=== PATIENT | female | born 1945 | race Caucasian/White ===

== ENCOUNTER 2016-05-10 05:39 | Emergency (ER) | payer OTHER ==
[~2016-05-10] VITALS: Ht 165.1 cm; Wt 71.8 kg
[~2016-05-10 05:39] MED LIST: ASPEC81 PO; LEVO75TA36 PO; LISI-461 PO; LPR25 PO; SIMV10TA2 PO; SNG10 PO
[2016-05-10 05:50] VITALS: BP 157/73; PULSE 69; TEMP 36.7; O2SAT 98; Ht 165.1 cm; Wt 71.8 kg
--- NOTE | 2016-05-10 05:59 | EMERGENCY ROOM VISIT NOTE ---
ED Visit Note First contact with patient: 05:52 CHIEF COMPLAINT: Tick bite HISTORY OF PRESENT ILLNESS: This 71 yo patient presents to the emergency department after they noticed a tick embedded neck. The patient did not try to remove it. It had been on for less than a day. The patient's tetanus shot is up-to-date. The patient denies any rashes, fevers, chills, or lightheadedness. The patient denies joint tenderness. REVIEW OF SYSTEMS: A 6 system review of systems was completed with positives and pertinent negatives listed in the HPI. ALLERGIES: Reviewed MEDICATIONS: Reviewed PMH: Hypertension, hyperlipidemia SOCIAL HISTORY: No drug use PHYSICAL EXAM: Vital Signs: Reviewed Nurse's notes, vital signs stable. GENERAL : Pleasant female, in no acute distress, well-developed, well-nourished. SKIN: There is small brown-black tick embedded in the patient's left-sided neck. There is a small zone of inflammation and eccymosis around the spot where the tick is. The skin is otherwise clear. NEUROLOGICAL: Alert and oriented to person place and time, cooperative. Sensory and motor functions grossly intact. ED COURSE: I examined the patient. A tick twister was used to remove the tick. The whole head was removed. There was no bleeding. The patient tolerated the procedure well. The area was dressed with bacitracin and a bandage. Patient was counseled on Lyme's disease and tick borne illnesses and all questions are answered. The patient was discharged home in good condition. DIAGNOSIS: Tick bite and removal DISCHARGE INSTRUCTIONS & TREATMENT: Watch the area for signs of infection. Keep bacitracin on it for 2 days. Follow up with family doctor if he develops symptoms of a target rash, fever, chills, lightheadedness, or joint pain. Problem List Medical Problems: (1) Anemia Status: Chronic Current/Historical Medications Scheduled Aspirin Enteric Coated (Ecotrin Or Generic *), 81 MG PO [id number] Levothyroxine (Levothroid), 0.075 MG PO DAILYBB Lisinopril (Zestril), 10 MG PO QAM Metoprolol Tartrate (Lopressor), 12.5 MG PO PM Montelukast Sod (Montelukast Sodium), 10 MG PO DAILY Simvastatin (Zocor), 10 MG PO QPM Allergies Coded Allergies: Itraconazole (Verified Allergy, Unknown, heart races, 05/10/16) Metoclopramide (Verified Allergy, Unknown, 04/25/09) TONGUE FEELS FULL Vital Signs Date Time Temp Pulse Resp B/P Pulse Ox O2 Delivery O2 Flow Rate FiO2 05/10/16 05:50 36.7 69 18 157/73 98 Room Air Departure Information Referrals Adrienne Loyd D.O. (PCP) Patient Instructions [facility]
[2016-05-10] MEDS ORDERED: LSN5 PO (06:12)
[2016-05-10] MEDS ORDERED: LEVO75TA5 PO (06:13)
[2016-05-10] MEDS ORDERED: TPRSR/25 PO (06:13)
[2016-05-10] MEDS ORDERED: ASPI81TA28 PO (06:14)
[2016-05-10] MEDS ORDERED: CALC-20 PO (06:15)
[2016-05-10] MEDS ORDERED: MULT-897 PO (06:15)
[2016-05-10] MEDS ORDERED: MONT1TAB3 PO (06:15)
== END 2016-05-10 06:11 | disposition home or self-care (01) ==
LOC: C.EDB 05:41
DX: S10.96XA Insect bite of unspecified part of neck, initial encounter (principal); W57.XXXA Bitten or stung by nonvenomous insect and other nonvenomous arthropods, initial encounter; I10 Essential (primary) hypertension; E78.5 Hyperlipidemia, unspecified; Z79.82 Long term (current) use of aspirin; Z79.899 Other long term (current) drug therapy

== ENCOUNTER 2017-02-09 18:41 | Emergency (ER) | payer OTHER ==
[~2017-02-09] VITALS: Ht 165.1 cm; Wt 70.8 kg
[~2017-02-09 18:41] MED LIST changes: -ASPEC81 PO; +ASPI81TA28 PO; +CALC-20 PO; -LEVO75TA36 PO; +LEVO75TA5 PO; -LISI-461 PO; -LPR25 PO; +LSN5 PO; +MONT1TAB3 PO; +MULT-897 PO; +TPRSR/25 PO
[2017-02-09 18:43] VITALS: TEMP 36.7; Ht 165.1 cm; Wt 70.8 kg
[2017-02-09] MEDS ORDERED: ALUMINUM/MAGNESIUM SUSP 30 ML UDC PO STA (19:01)
[2017-02-09] MEDS ORDERED: LIDOCAINE HCL 2% VISC SOLN 20 ML UDC PO STA (19:01)
[2017-02-09 19:30] LABS: BASO % 0.5 %; BASO ABS # 0.04 K/uL (0-0.2); COMPLETE YES; EOS % 1.3 %; HEMATOCRIT 35.5 % (37-47); IG% 0.2 %; LYMPH % 20.5 %; LYMPH ABS # 1.73 K/uL (1.2-3.4); MEAN CELL VOLUME 87.9 fL (80-100); MEAN CORPUSCULAR HEMOGLOBIN 29.5 pg (25-34); MEAN CORPUSCULAR HGB CONC 33.5 g/dl (32-36); MEAN PLATELET VOLUME 9.9 fL (7.4-10.4); MONO % 9.7 %; NEUT % 67.8 %; PLATELET COUNT 231 K/uL (130-400); RED BLOOD COUNT 4.04 M/uL (4.2-5.4); WHITE BLOOD COUNT 8.44 K/uL (4.8-10.8)
--- NOTE | 2017-02-09 19:33 | DIAGNOSTIC IMAGING REPORT ---
SINGLE VIEW CHEST CLINICAL HISTORY: Fever. Sepsis. FINDINGS: An AP, portable, upright chest radiograph is compared to study dated 07/21/2011 and correlated with chest CT dated 07/22/2011. The examination is degraded by portable technique and apical lordotic positioning. The cardiomediastinal silhouette is unremarkable. The lungs and pleural spaces are clear. No pneumothorax is seen. The skeletal structures are osteopenic. The bony thorax is grossly intact. IMPRESSION: No active disease in the chest. Electronically signed by: Rodrigo Garcia M.D. 02/09/2017 7:32 PM Dictated Date/Time: 02/09/2017 7:31 PM
[2017-02-09 19:50] LABS: ALT/SGPT 27 U/L (12-78); BLOOD UREA NITROGEN 20 mg/dl (7-18); BUN/CREATININE RATIO 18.7 (10-20); CALCIUM 9.4 mg/dl (8.5-10.1); CARBON DIOXIDE 26 mmol/L (21-32); CHLORIDE 103 mmol/L (98-107); CREATININE 1.05 mg/dl (0.60-1.20); GLUCOSE 109 mg/dl (70-99); POTASSIUM 3.6 mmol/L (3.5-5.1); SODIUM 138 mmol/L (136-145)
[2017-02-09 19:55] LABS: ALKALINE PHOSPHATASE 67 U/L (45-117); AST/SGOT 20 U/L (15-37); CKMB/CK RATIO 1.5 (0-3.0)
[2017-02-09] MEDS ORDERED: COEN1CAP7 PO (19:59)
[2017-02-09] MEDS ORDERED: PRVC/20 PO (19:59)
--- NOTE | 2017-02-09 20:03 | EMERGENCY ROOM VISIT NOTE ---
History Report prepared by Moncho: Sean Freitas Under the Supervision of: Dr. Atul Ferris D.O. First contact with patient: 18:53 Chief Complaint: CHEST PAIN Stated Complaint: CHEST PAIN, BURNING/STINGY, BURPING- REFERRED History of Present Illness The patient is a 72 year old female who presents to the Emergency Room with complaints of intermittent left chest pain starting yesterday morning around 0300. She currently rates her discomfort as a 3/10 in severity. The patient additionally states that she has been burping a lot, having more bowel movements than usual, and she has a little bit of shortness of breath. She states that she had a stress test done five years ago as well as a catheterization, though she did not have any blockages. The patient states that she went to urgent care this morning, and they told her to come to the ED for further evaluation to rule out a heart attack. She denies any leg pain or swelling. Source of History: patient Onset: yesterday morning at 0300 Position: chest (left) Symptom Intensity: 3/10 Timing: intermittent Associated Symptoms: + SOB Note: Associated symptoms: Burping and a lot of bowel movements. Review of Systems See HPI for pertinent positives & negatives. A total of 10 systems reviewed and were otherwise negative. Past Medical & Surgical Medical Problems: (1) Anemia Social History Smoking Status: Never Smoker Marital Status: Occupation Status: retired Current/Historical Medications Scheduled Aspirin (Aspirin Ec), 81 MG PO 3XWK Coenzyme Q10 (Ubidecarenone) (Coq10), 200 MG PO QPM Levothyroxine Sodium (Levothyroxine Sodium), 75 MCG PO DAILY Lisinopril (Lisinopril), 5 MG PO DAILY Metoprolol Succinate (Metoprolol Succinate ER), 12.5 MG PO QPM Montelukast Sod (Montelukast Sodium), 10 MG PO DAILY Pravastatin Sod (Pravastatin Sodium), 20 MG PO HS Allergies Coded Allergies: Itraconazole (Verified Allergy, Unknown, heart races, 02/09/17) Metoclopramide (Verified Allergy, Unknown, 02/09/17) TONGUE FEELS FULL Physical Exam Vital Signs Date Time Temp Pulse Resp B/P (MAP) Pulse Ox O2 Delivery O2 Flow Rate FiO2 02/09/17 20:09 72 18 161/73 97 02/09/17 19:14 95 Room Air 11/22/17 19:14 Room Air 02/09/17 19:13 82 02/09/17 18:43 36.7 72 18 145/76 96 Room Air Physical Exam CONSTITUTIONAL/VITAL SIGNS: Reviewed / noted above. GENERAL: Non-toxic in appearance. INTEGUMENTARY: Warm, dry, and [place]. HEAD: Normocephalic. EYES: without scleral icterus or trauma. ENT/OROPHARYNX: clear and moist. LYMPHADENOPATHY/NECK: Is supple without lymphadenopathy or meningismus. RESPIRATORY: Lungs clear and equal. CARDIOVASCULAR: Regular rate and rhythm. GI/ABDOMEN: Soft and nontender. No organomegaly or pulsatile mass. No rebound or guarding. Normal bowel sounds. EXTREMITIES: Warm and well perfused. BACK: No CVA tenderness. NEUROLOGICAL: Intact without focal deficits. PSYCHIATRIC: normal affect. MUSCULOSKELETAL: Normally developed with good muscle tone. Medical Decision & Procedures ER Provider Diagnostic Interpretation: Radiology results as stated below per my review and radiologist interpretation: SINGLE VIEW CHEST CLINICAL HISTORY: Fever. Sepsis. FINDINGS: An AP, portable, upright chest radiograph is compared to study dated 07/21/2011 and correlated with chest CT dated 07/22/2011. The examination is degraded by portable technique and apical lordotic positioning. The cardiomediastinal silhouette is unremarkable. The lungs and pleural spaces are clear. No pneumothorax is seen. The skeletal structures are osteopenic. The bony thorax is grossly intact. IMPRESSION: No active disease in the chest. Electronically signed by: Rodrigo Garcia M.D. 02/09/2017 7:32 PM Dictated Date/Time: 02/09/2017 7:31 PM Laboratory Results 02/09/17 19:15 Red Blood Count 4.04, Mean Corpuscular Volume 87.9, Mean Corpuscular Hemoglobin 29.5, Mean Corpuscular Hemoglobin Concent 33.5, Mean Platelet Volume 9.9, Neutrophils (%) (Auto) 67.8, Lymphocytes (%) (Auto) 20.5, Monocytes (%) (Auto) 9.7, Eosinophils (%) (Auto) 1.3, Basophils (%) (Auto) 0.5, Neutrophils # (Auto) 5.72, Lymphocytes # (Auto) 1.73, Monocytes # (Auto) 0.82, Eosinophils # (Auto) 0.11, Basophils # (Auto) 0.04 02/09/17 19:15 Test 02/09/17 19:15 02/09/17 20:13 White Blood Count 8.44 K/uL (4.8-10.8) Red Blood Count 4.04 M/uL (4.2-5.4) Hemoglobin 11.9 g/dL (12.0-16.0) Hematocrit 35.5 % (37-47) Mean Corpuscular Volume 87.9 fL (80-100) Mean Corpuscular Hemoglobin 29.5 pg (25-34) Mean Corpuscular Hemoglobin Concent 33.5 g/dl (32-36) Platelet Count 231 K/uL (130-400) Mean Platelet Volume 9.9 fL (7.4-10.4) Neutrophils (%) (Auto) 67.8 % Lymphocytes (%) (Auto) 20.5 % Monocytes (%) (Auto) 9.7 % Eosinophils (%) (Auto) 1.3 % Basophils (%) (Auto) 0.5 % Neutrophils # (Auto) 5.72 K/uL (1.4-6.5) Lymphocytes # (Auto) 1.73 K/uL (1.2-3.4) Monocytes # (Auto) 0.82 K/uL (0.11-0.59) Eosinophils # (Auto) 0.11 K/uL (0-0.5) Basophils # (Auto) 0.04 K/uL (0-0.2) RDW Standard Deviation 42.3 fL (36.4-46.3) RDW Coefficient of Variation 13.2 % (11.5-14.5) Immature Granulocyte % (Auto) 0.2 % Immature Granulocyte # (Auto) 0.02 K/uL (0.00-0.02) Prothrombin Time 12.0 SECONDS (9.0-12.0) Prothromb Time International Ratio 1.1 (0.9-1.1) Activated Partial Thromboplast Time 24.3 SECONDS (21.0-31.0) Partial Thromboplastin Ratio 0.9 Anion Gap 8.0 mmol/L (3-11) Est Creatinine Clear Calc Drug Dose 49.2 ml/min Estimated GFR () 62.3 Estimated GFR (Non- 53.8 BUN/Creatinine Ratio 18.7 (10-20) Calcium Level 9.4 mg/dl (8.5-10.1) Total Bilirubin 0.3 mg/dl (0.2-1) Direct Bilirubin < 0.1 mg/dl (0-0.2) Aspartate Amino Transf (AST/SGOT) 20 U/L (15-37) Alanine Aminotransferase (ALT/SGPT) 27 U/L (12-78) Alkaline Phosphatase 67 U/L (45-117) Total Creatine Kinase 82 U/L (26-192) Creatine Kinase MB 1.2 ng/ml (0.5-3.6) Troponin I < 0.015 ng/ml (0-0.045) Total Protein 8.1 gm/dl (6.4-8.2) Albumin 4.0 gm/dl (3.4-5.0) Lipase 169 U/L (73-393) Creatine Kinase MB Ratio (0-3.0) Laboratory results as stated above per my review. Medications Administered Medications (Trade) Dose Ordered Sig/Zenaida Route Start Time Stop Time Status Last Admin Dose Admin Al Hydroxide/Mg Hydroxide (Maalox Susp) 30 ml NOW STAT PO 02/09/17 19:01 02/09/17 19:03 DC 02/09/17 19:40 30 ML Lidocaine HCl (Viscous Lidocaine 2% Soln) 10 ml NOW STAT PO 02/09/17 19:01 02/09/17 19:03 DC 02/09/17 19:40 10 ML ECG Indication: chest pain Rate (beats per minute): 59 Rhythm: sinus bradycardia Findings: no ectopy, other (No acute injury) ED Course 1852: Previous medical records were reviewed. The patient was evaluated in room A11. A complete history and physical examination was performed. 1900: Viscous Lidocaine 2% Soln 10ml PO, Maalox Susp 30ml PO 2004: On reevaluation, the patient is stable. I discussed the results and findings with the patient. She verbalized agreement of the treatment plan. She was discharged home. Medical Decision Differentials considered include acute myocardial infarction, acute coronary syndrome, myocarditis, pericarditis, pericardial effusions /tamponade, esophageal perforation, thoracic aortic dissection, pulmonary embolism, pneumonia, pneumothorax, pancreatitis, shingles, acute cholecystitis, and perforated abdominal viscus. This is a 72-year-old female who presents to the ED with a chief complaint of a burning sensation in her left breast as well as some burping. Her symptoms started yesterday morning around 3 AM. She states that she occasionally feels like she has to take a deep breath to catch up on her breathing. She reports that she has also been having bowel movements close together. She was unsure if this was a GI thing or a cardiac thing. She saw her PCP today and had a normal EKG. She was sent here for further evaluation. Her physical exam and vital signs are normal and stable. EKG shows a normal sinus rhythm. CBC is normal, complete metabolic panel is normal, troponin was negative, chest x-ray did not show acute disease. The patient was told the results. She is felt to be stable for discharge and outpatient follow-up. Medication Reconcilliation Current Medication List: was personally reviewed by me Blood Pressure Screening Patient's blood pressure: Elevated blood pressure Blood pressure disposition: Elevated BP felt to be situational Impression Primary Impression: Substernal precordial chest pain Scribe Attestation The scribe's documentation has been prepared under my direction and personally reviewed by me in its entirety. I confirm that the note above accurately reflects all work, treatment, procedures, and medical decision making performed by me. Departure Information Dispostion Home / Self-Care Referrals Adrienne Loyd D.O. (PCP) Forms Call Back Authorization, HOME CARE DOCUMENTATION FORM, IMPORTANT VISIT INFORMATION Patient Instructions My [facility] Additional Instructions Follow-up with your doctor for further care and evaluation in 1week if symptoms persist. Return to the emergency department for worsening or new symptoms or any concerns. You have been examined and treated today on an emergency basis only. This is not a substitute for, or an effort to provide, complete comprehensive medical care. It is impossible to recognize and treat all injuries or illnesses in a single emergency department visit. It is therefore important that you follow up closely with your doctor. Call as soon as possible for an appointment.
[2017-02-09 20:09] VITALS: BP 161/73; PULSE 72; O2SAT 97
[2017-02-09 20:32] LABS: INR 1.1 (0.9-1.1); PARTIAL THROMBOPLASTIN RATIO 0.9
== END 2017-02-09 20:10 | disposition home or self-care (01) ==
LOC: C.EDB 18:43 → C.EDA 20:10
DX: R07.2 Precordial pain (principal); D64.9 Anemia, unspecified; Z79.82 Long term (current) use of aspirin; Z79.899 Other long term (current) drug therapy

== ENCOUNTER → 2017-05-17 | Outpatient (CLI) | payer OTHER ==
[~2017-05-17] MED LIST changes: -CALC-20 PO; +COEN1CAP7 PO; -MONT1TAB3 PO; -MULT-897 PO; +PRVC/20 PO; -SIMV10TA2 PO
--- NOTE | 2017-05-17 15:13 | MAMMOGRAPHY REPORT ---
BILATERAL DIGITAL SCREENING MAMMOGRAM TOMOSYNTHESIS WITH CAD: 05/17/2017 CLINICAL HISTORY: Routine screening. Patient has no complaints. TECHNIQUE: Breast tomosynthesis in addition to standard 2D mammography was performed. Current study was also evaluated with a Computer Aided Detection (CAD) system. COMPARISON: Comparison is made to exams dated: 12/18/2012 mammogram, 07/28/2011 mammogram, 07/01/2010 ma mmogram - [facility], 12/10/2008, 03/03/2004 mammogram, and 02/21/2002 mammogram - [facility]. BREAST COMPOSITION: The tissue of both breasts is heterogeneously dense, which may obscure small mas ses. FINDINGS: There is an 8 mm partially circumscribed lobulated mass with associated calcification in t he upper outer posterior left breast, for which additional spot compression tomosynthesis views and p ossible ultrasound are recommended. A possible area of architectural distortion is seen in the lateral, middle one third of the left raissa st on CC tomosynthesis slice 21/68, for which additional spot compression tomosynthesis view and poss ible ultrasound are recommended. There are scattered round and oval circumscribed masses in both breasts, which is otherwise a typical ly benign mammographic pattern most likely represented fluctuating cysts. There are diffuse bilatera l benign-appearing rodlike and rim calcifications. No other suspicious mass, architectural distortion or cluster of microcalcifications is seen. IMPRESSION: ACR BI-RADS CATEGORY 0: INCOMPLETE EVALUATION: NEED ADDITIONAL IMAGING EVALUATION The 8 mm partially circumscribed, lobulated mass with associated calcification and possible area of a rchitectural distortion in the lateral left breast need additional imaging evaluation. The patient will be called to schedule an appointment. Approximately 10% of breast cancers are not detected with mammography. A negative mammographic report should not delay biopsy if a clinically suggestive mass is present. Kerrie Lafleur M.D. ay/:05/17/2017 15:04:18 Auditor Appraiser: Vasiliy Jorge M, [facility] letter sent: Addl Imaging 0 BI-RADS Code: ACR BI-RADS Category 0: Incomplete Evaluation: Need Additional Imaging Evaluation
== END | disposition home or self-care (01) ==
LOC: C.MAMM 09:14
PROVIDERS: ATTEND Family Medicine
DX: Z12.31 Encounter for screening mammogram for malignant neoplasm of breast (principal); N63.20 Unspecified lump in the left breast, unspecified quadrant; R92.1 Mammographic calcification found on diagnostic imaging of breast

== ENCOUNTER → 2017-05-27 | Outpatient (CLI) | payer OTHER ==
--- NOTE | 2017-05-27 13:53 | MAMMOGRAPHY REPORT ---
UNILATERAL LEFT DIGITAL DIAGNOSTIC MAMMOGRAM TOMOSYNTHESIS AND TARGETED LEFT ULTRASOUND: 05/27/2017 CLINICAL HISTORY: Callback from screening mammogram for left breast mass and possible left breast arc hitectural distortion. The patient reports increasing tenderness behind her left nipple for approxim ately 6 weeks. She denies any nipple discharge or other changes involving her nipple. She reports t hat her nipples have always been inverted. TECHNIQUE: Breast tomosynthesis in addition to standard 2D mammography was performed. Spot magnific ation left CC and ML views and spot compression left CC and MLO 2D and tomosynthesis images were obta ined. COMPARISON: Comparison is made to exams dated: 05/17/2017 mammogram, 12/18/2012 mammogram, 07/28/2011 ma mmogram, 07/01/2010 mammogram - [facility], 12/10/2008, and 03/03/2004 mammogram - [facility]. BREAST COMPOSITION: The tissue of the left breast is heterogeneously dense, which may obscure small masses. FINDINGS: Spot magnification views of the left breast demonstrate a persistent low-density circumscri bed oval 8 mm mass within the left upper outer quadrant. A few faint punctate calcifications are see n within the mass. The previously described questionable architectural distortion seen within the le ft lateral breast on the cc view does not clearly persist on additional spot compression views and is felt to represent normal fibroglandular tissue. Targeted ultrasound was performed of the left upper outer quadrant in the region of the mammographic mass. Multiple scattered anechoic cysts were noted during the exam. In the left breast at 2:00 max areolar region, there is an oval anechoic benign simple cyst measuring 5 x 5 mm. Another 6 mm anecho ic benign simple cyst is seen within the left 2:00 breast, 2 cm from the nipple. In the left 2:00 br east, 4 cm from the nipple, there is a circumscribed anechoic and hypoechoic mass with a few punctate echogenic foci seen within the mass which corresponds with the mammographic calcifications. The mas s measures 6 x 3 x 3 mm. This corresponds with the mammographic mass and calcifications and is proba jeannine benign and likely represents a complicated cyst. Ultrasound was performed of the left subareolar breast to evaluate the patient's increasing pain. A small anechoic benign simple cyst measuring 3 m m is seen within the left subareolar breast, without evidence of a mass or other suspicious sonograph ic abnormality. IMPRESSION: ACR-BI-RADS CATEGORY 3: PROBABLY BENIGN, TARGETED ULTRASOUND ACR-BI-RADS CATEGORY 3: PRO BABLY BENIGN 1. Circumscribed 6 mm mass in the left 2:00 breast on ultrasound, which corresponds with the mammogr aphic mass and associated punctate calcifications. The mass is probably benign and likely represents a complicated cyst. Recommend follow-up diagnostic tomosynthesis mammograms and possible ultrasound of the left breast in 6 months to confirm stability. 2. No persistent architectural distortion seen within the left lateral breast on the additional view s. Findings are felt to represent normal fibroglandular tissue, however, the area can be reevaluated at the time of the six-month follow-up. 3. No suspicious mammographic or sonographic abnormality to explain left subareolar pain. Recommend clinical follow-up. The patient has been verbally notified of the results. Approximately 10% of breast cancers are not detected with mammography. A negative mammographic report should not delay biopsy if a clinically suggestive mass is present. Telma Sarmiento M.D. ah/:05/27/2017 10:36:09 [employer] Pressing Machine Operator: Oh LARIOS(Vasiliy)(M), [facility] letter sent: Follow Up Recommended 3 BI-RADS Code: ACR-BI-RADS Category 3: Probably Benign Ultrasound BI-RADS: ACR-BI-RADS Category 3: Pr obably Benign
== END | disposition home or self-care (01) ==
LOC: C.MAMM 09:34
PROVIDERS: ATTEND Family Medicine
DX: N63.20 Unspecified lump in the left breast, unspecified quadrant (principal); R92.2 Inconclusive mammogram

== ENCOUNTER 2020-11-21 09:33 | Inpatient (IN) ==
--- NOTE | 2020-11-21 10:01 | Emergency Department Note ---
Impression & Plan Acute pancreatitis, Transaminitis ED Provider Note NAME: ROSELIA BURNETT AGE: 75 SEX: F : 1945 ARRIVES VIA: Walk-In INFORMANT: Patient, ED PROVIDER(S): Bryan Luciano MD Chief Complaint: Abdominal pain HPI: Patient does present with abdominal pain that is been ongoing since Tuesday but has gotten progressively worse. The patient does describe it as achy in nature. Patient states that initially started from her sternum to her umbilicus but is now into her lower abdomen. The patient denies any fevers or chills. The patient states that she was seen in the outpatient setting on Tuesday and was prescribed medications for "stomach ulcers." Patient states that her symptoms have not improved even with the medication. The patient denies any nausea vomiting. The patient is a prior history of cholecystectomy hysterectomy. Patient denies any blood in the urine or stool. No recent trauma. The patient denies any heavy lifting twisting or turning. Patient states that she has had a recent bowel movement without any blood or constipation symptoms. Patient is vaccinated for Covid. The patient has alcohol or tobacco use. ROS: See HPI for pertinent positives and negatives. A total of 10 systems were reviewed and otherwise negative. Past medical history: See below Surgical history: See below Social history: See below Physical Exam: GENERAL: NAD, wearing a mask, non-toxic. EYE EXAM: Normal conjunctiva. PERRL, no anisocoria and EOM's grossly intact w/o pain. NECK: Supple, no nuchal rigidity, no adenopathy, non-tender. No signs of meningismus. LUNGS: Clear to auscultation. Normal chest wall mechanics. HEART: NSR, no MRG. ABDOMEN: Abdomen soft, mild diffuse abdominal pain, normo-active bowel sounds, no masses, no rebound or guarding. BACK: No CVA TTP. SKIN: No rashes and no bruising. UPPER EXTREMITIES: Upper extremities are grossly normal. LOWER EXTREMITIES: Grossly normal, no edema. NEURO EXAM: A&O x3, cranial nerves II-XII grossly intact, normal speech, moves all 4 extremities on command w/o issue. Differential diagnoses: Appendicitis, ovarian cyst, ovarian torsion, ectopic , TOA, PID, infections, diverticulitis, UTI, obstruction, mesenteric ischemia, aortic pathology, inflammatory bowel disease, renal colic, PUD, pancreatitis, biliary pathology, hernia, volvulus, constipation, as well as other pathologies. Course: Patient was seen and evaluated the bedside. Full history physical exam was performed. EKG interpreted by me Normal sinus rhythm, rate of 72, wide QRS, normal axis, left bundle branch block pattern. Imaging Studies: See Below Cardiac monitoring: An order was placed for continuous cardiac monitoring. The monitor shows a rate of 72 with sinus rhythm. MDM: Patient did present with concern for abdominal pain. The patient blood work did show a white count of 25 with a likely gallstone pancreatitis as the patient does have elevations in her LFTs and lipase. Empiric Zosyn was ordered along with blood cultures. Patient CT does show pancreatitis. I did consult GI who will see the patient, and I spoke with the on-call medicine service. The patient was admitted to the medicine service by Dr. Santana with [facility]. Past Med/Surg History Medical History High blood pressure HLD (hyperlipidemia) Hypertension Hyponatremia Hypothyroid Left bundle branch block Surgical History H/O: hysterectomy Hx of cholecystectomy Social History Smoking Status: Never smoker Hx Alcohol Use: No Hx Substance Use: No Preferred Language: [place] Payroll Representative Required: No Beliefs That Will Affect Care: None Current Living Situation: Significant Other Other Information That Helps Us Care for You: No Feels Safe at Home: Yes Safety Concerns: Feels Safe At This Time Assistive Devices: None Allergies Allergies Allergy/AdvReac Type Severity Reaction Status Date / Time itraconazole Allergy Unknown heart races Verified 11/21/20 11:17 metoclopramide Allergy Unknown Verified 11/21/20 11:17 Home Meds Home Medications Medication Instructions Recorded Confirmed coenzyme Q10 100 mg capsule 100 mg PO HS 11/21/20 11/21/20 (CoQ-10) famotidine 40 mg tablet (Pepcid) 40 mg PO HS 11/21/20 11/21/20 levothyroxine 75 mcg tablet 75 mcg PO DAILYBB 11/21/20 11/21/20 (Synthroid) lisinopril 5 mg tablet (Zestril) 2.5 mg PO QAM 11/21/20 11/21/20 metoprolol succinate 25 mg 12.5 mg PO HS 11/21/20 11/21/20 tablet,extended release 24 hr (Toprol XL) montelukast 10 mg tablet 10 mg PO QAM 11/21/20 11/21/20 (Singulair) ondansetron HCl 4 mg tablet 4 mg PO UD 11/21/20 11/21/20 (Zofran) pravastatin 20 mg tablet 20 mg PO HS 11/21/20 11/21/20 Results & Data (ED) Vital Signs Vital Signs - 24 hr 11/21/20 09:41 11/21/20 10:09 11/21/20 10:30 Temperature 35.7 C L Temperature Source Temporal Artery Scan Pulse Rate 67 78 76 Pulse Rate [Apical] Pulse Rate from SpO2 Sensor 74 Pulse Rhythm Regular Respiratory Rate 20 20 16 Blood Pressure 149/80 H 163/62 H Blood Pressure [Left Arm] Blood Pressure Mean 103 95 Blood Pressure Mean [Left Arm] Pulse Oximetry 97 78 L 94 Oxygen Delivery Method Room Air Room Air Sepsis Recent Fever Within 48 Hours No Sepsis New/Unexplained Change in Mental Status No Sepsis Action Taken by Nursing No Action Required 11/21/20 11:00 11/21/20 12:00 11/21/20 12:02 Temperature Temperature Source Pulse Rate 82 76 Pulse Rate [Apical] 77 Pulse Rate from SpO2 Sensor 83 74 Pulse Rhythm Respiratory Rate 16 16 18 Blood Pressure 184/87 H 163/67 H Blood Pressure [Left Arm] 163/73 H Blood Pressure Mean 119 99 Blood Pressure Mean [Left Arm] 103 Pulse Oximetry 96 96 96 Oxygen Delivery Method Room Air Sepsis Recent Fever Within 48 Hours Sepsis New/Unexplained Change in Mental Status Sepsis Action Taken by Custodial Medications Current Medication List: was personally reviewed by me Laboratory Data Attestation: I reviewed the patient's lab results. Result diagrams: 11/21/20 10:00 11/21/20 10:00 Lab Results 11/21/20 11/21/20 11/21/20 Range/Units 10:00 10:00 10:07 WBC 25.01 H (4.8-10.8) K/uL RBC 4.32 (4.2-5.4) M/uL Hgb 13.0 (12.0-16.0) g/dL Hct 37.8 (37-47) % MCV 87.5 (80-100) fL MCH 30.1 (25-34) pg MCHC 34.4 (32-36) g/dL RDW Std Deviation 45.2 (36.4-46.3) fL RDW Coeff of Estefanía 14.1 (11.5-14.5) % Plt Count 252 (130-400) K/uL MPV 10.6 H (7.4-10.4) fL Immature Gran % (Auto) 0.2 % Neut % (Auto) 87.3 % Lymph % (Auto) 5.7 % [place] % (Auto) 6.7 % Eos % (Auto) 0.0 % Baso % (Auto) 0.1 % Neut # (Auto) 21.84 H (1.4-6.5) K/uL Lymph # (Auto) 1.42 (1.2-3.4) K/uL Titus # (Auto) 1.67 H (0.11-0.59) K/uL Eos # (Auto) 0.00 (0-0.5) K/uL Baso # (Auto) 0.02 (0-0.2) K/uL Immature Gran # (Auto) 0.06 H (0.00-0.02) K/uL Sodium 130 L (136-145) mmol/L Potassium 3.5 (3.5-5.1) mmol/L Chloride 95 L (98-107) mmol/L Carbon Dioxide 28 (21-32) mmol/L Anion Gap 7.0 (3-11) BUN 20 H (7-18) mg/dl Creatinine 1.10 (0.6-1.2) mg/dl Est Cr Clr Drug Dosing 43.5 ml/min Est GFR ( Amer) 57.7 ml/min Est GFR (Non-Af Amer) 49.8 ml/min BUN/Creatinine Ratio 18.5 (10-20) Glucose 156 H (70-99) mg/dl Calcium 8.9 (8.5-10.1) mg/dl Total Bilirubin 1.9 H (0.2-1) mg/dl AST 204 H (15-37) U/L ALT 624 H (12-78) U/L Alkaline Phosphatase 221 H (45-117) U/L Troponin I < 0.015 (0-0.045) ng/ml Total Protein 8.4 H (6.4-8.2) gm/dl Albumin 3.5 (3.4-5.0) gm/dl Globulin 4.9 H (2.5-4.0) gm/dl Albumin/Globulin Ratio 0.7 L (0.9-2) Lipase 1174 H (73-393) U/L Urine Color [place] Urine Appearance Cloudy A (Clear) Urine pH 5.0 (4.5-7.5) Ur Specific [place] 1.035 H (1.000-1.030) Urine Protein 2+ H (Negative) Urine Glucose (UA) Negative (Negative) Urine Ketones Trace H (Negative) Urine Blood Negative (Negative) Urine Nitrite Positive A (Negative) Urine Bilirubin 2+ H (Negative) Urine Urobilinogen Negative (Negative) Ur Leukocyte Esterase 1+ H (Negative) Urine WBC (Auto) 10-30 H (0-5) /hpf Urine RBC (Auto) 10-30 H (0-4) /hpf U Hyaline Cast (Auto) 1-5 (0-5) /lpf U Epithel Cells (Auto) >30 H (0-5) /lpf Urine Bacteria (Auto) 1+ H (Negative) Urine Mucus Present A (None Prsent) COVID-19 Eval Order SARS-CoV-2 (PCR) (Negative) 11/21/20 11/21/20 Range/Units 11:21 11:21 WBC (4.8-10.8) K/uL RBC (4.2-5.4) M/uL Hgb (12.0-16.0) g/dL Hct (37-47) % MCV (80-100) fL MCH (25-34) pg MCHC (32-36) g/dL RDW Std Deviation (36.4-46.3) fL RDW Coeff of Estefanía (11.5-14.5) % Plt Count (130-400) K/uL MPV (7.4-10.4) fL Immature Gran % (Auto) % Neut % (Auto) % Lymph % (Auto) % [place] % (Auto) % Eos % (Auto) % Baso % (Auto) % Neut # (Auto) (1.4-6.5) K/uL Lymph # (Auto) (1.2-3.4) K/uL [place] # (Auto) (0.11-0.59) K/uL Eos # (Auto) (0-0.5) K/uL Baso # (Auto) (0-0.2) K/uL Immature Gran # (Auto) (0.00-0.02) K/uL Sodium (136-145) mmol/L Potassium (3.5-5.1) mmol/L Chloride (98-107) mmol/L Carbon Dioxide (21-32) mmol/L Anion Gap (3-11) BUN (7-18) mg/dl Creatinine (0.6-1.2) mg/dl Est Cr Clr Drug Dosing ml/min Est GFR ( Amer) ml/min Est GFR (Non-Af Amer) ml/min BUN/Creatinine Ratio (10-20) Glucose (70-99) mg/dl Calcium (8.5-10.1) mg/dl Total Bilirubin (0.2-1) mg/dl AST (15-37) U/L ALT (12-78) U/L Alkaline Phosphatase (45-117) U/L Troponin I (0-0.045) ng/ml Total Protein (6.4-8.2) gm/dl Albumin (3.4-5.0) gm/dl Globulin (2.5-4.0) gm/dl Albumin/Globulin Ratio (0.9-2) Lipase (73-393) U/L Urine Color Urine Appearance (Clear) Urine pH (4.5-7.5) Ur Specific [place] (1.000-1.030) Urine Protein (Negative) Urine Glucose (UA) (Negative) Urine Ketones (Negative) Urine Blood (Negative) Urine Nitrite (Negative) Urine Bilirubin (Negative) Urine Urobilinogen (Negative) Ur Leukocyte Esterase (Negative) Urine WBC (Auto) (0-5) /hpf Urine RBC (Auto) (0-4) /hpf U Hyaline Cast (Auto) (0-5) /lpf U Epithel Cells (Auto) (0-5) /lpf Urine Bacteria (Auto) (Negative) Urine Mucus (None Prsent) COVID-19 Eval Order Covid19 at [facility] SARS-CoV-2 (PCR) NEGATIVE (Negative) Administered Medications Lactated Ringer's (Lr) 1,000 mls @ 200 mls/hr IV .Q5H TODD Stop: 12/21/20 14:44 Last Admin: 11/21/20 14:52 Dose: 200 mls/hr Documented by: [id number] Discontinued Medications Hydromorphone HCl (Hydromorphone Inj 0.5 Mg/0.5 Ml Syr) 0.5 mg IV NOW STA Stop: 11/21/20 12:04 Last Admin: 11/21/20 12:12 Dose: 0.5 mg Documented by: [id number] Sodium Chloride (Nss) 500 mls @ 999 mls/hr IV .Q31M STA Stop: 11/21/20 10:39 Last Infusion: 11/21/20 12:04 Dose: 0 mls/hr Documented by: [id number] Admin: 11/21/20 10:26 Dose: 999 mls/hr Documented by: [id number] Piperacillin Sod/Tazobactam Sod (Zosyn) 4.5 gm in 120 mls @ 240 mls/hr IV NOW ONE Stop: 11/21/20 11:13 Last Infusion: 11/21/20 12:19 Dose: 0 mls/hr Documented by: [id number] Admin: 11/21/20 11:36 Dose: 240 mls/hr Documented by: [id number] Sodium Chloride (Nss 1000ml) 1,000 mls @ 999 mls/hr IV .Q1H1M ONE Stop: 11/21/20 12:37 Last Infusion: 11/21/20 13:12 Dose: 0 mls/hr Documented by: [id number] Admin: 11/21/20 12:11 Dose: 999 mls/hr Documented by: [id number] Sodium Chloride (Nss 1000ml) 1,000 mls @ 250 mls/hr IV .Q4H TODD Stop: 12/21/20 14:26 Last Admin: 11/21/20 14:49 Dose: Not Given Documented by: [id number] Acetaminophen (Ofirmev) 1,000 mg in 100 mls @ 400 mls/hr IV Q8H PRN PRN Reason: Pain or Fever Stop: 11/24/20 14:26 Last Infusion: 11/21/20 15:52 Dose: 0 mls/hr Documented by: [id number] Admin: 11/21/20 14:59 Dose: 400 mls/hr Documented by: [id number] Indomethacin (Indomethacin 50 Mg Supp) 100 mg IN ONCE ONE Stop: 11/21/20 16:01 Last Admin: 11/21/20 16:03 Dose: 100 mg Documented by: [id number] Ioversol (Optiray 320 100ml) 94 ml IV ONCE ONE Stop: 11/21/20 10:48 Last Admin: 11/21/20 10:48 Dose: 94 ml Documented by: [id number] Morphine Sulfate (Morphine Sulfate 4 Mg/Ml 1 Ml Carp\\Vial) 2 mg IV NOW STA Stop: 11/21/20 10:10 Last Admin: 11/21/20 10:26 Dose: Not Given Documented by: [id number] Morphine Sulfate (Morphine Sulfate 2 Mg/Ml Carp) Confirm Administered Dose 2 mg .ROUTE .STK-MED ONE Stop: 11/21/20 10:24 Last Admin: 11/21/20 10:26 Dose: 2 mg Documented by: [id number] Ondansetron HCl (Ondansetron Inj 2 Mg/Ml 2 Ml Vial) 4 mg IV NOW STA Stop: 11/21/20 10:10 Last Admin: 11/21/20 10:26 Dose: 4 mg Documented by: [id number] Imaging Data Radiologist's Impression: Abdomen/Pelvis CT 11/21/20 10:[address] WITH IV CONTRAST CT DOSE: 290.91 mGy.cm HISTORY: diffuse ab pain, migratory from epigastric pain-> suprapubic TECHNIQUE: Multiaxial CT images of the abdomen and pelvis were performed following the use of intravenous contrast. A dose lowering technique was utilized adhering to the principles of ALARA. COMPARISON STUDY: None. FINDINGS: A few small bibasilar linear densities consistent with subsegmental atelectasis. No pneumoperitoneum. No pneumatosis. No suspicious lytic are blastic osseous lesions. Cholecystectomy. There are 2 hypodense lesions within the left hepatic lobe which measure up to 1 cm. These favor cysts. The main portal vein is patent. No retroperitoneal lymphadenopathy. Normal caliber abdominal aorta. The spleen and adrenal glands unremarkable. A 1.9 cm right renal cyst. No hydronephrosis. There are 2 hypodense lesions within the left k idney which do not clearly represent simple cysts. These measure up to 8 mm and is therefore too small to characterize. Statistically these represent small hyperdense cysts. Mild peripancreatic inflammatory change is noted. This is consistent with acute pancreatitis. No evidence for pancreatic necrosis or peripancreatic fluid collections at this time. There is trace ascites seen within the abdomen. The superior mesenteric vein and artery are patent. Questionable thickening of the proximal duodenum is likely reactive to the acute pancreatitis. Mild bladder wall thickening. This is likely due to underdistention. Hysterectomy. Colonic diverticulosis. No evidence for acute diverticulitis. No evidence for bowel obstruction. The appendix is partially obscured by the trace pelvic fluid but is likely within the range of normal limits. IMPRESSION: 1. Acute pancreatitis. 2. Cholecystectomy and hysterectomy. 3. No evidence for bowel obstruction. 4. Colonic diverticulosis. No evidence for acute diverticulitis. 5. Subcentimeter hypodensities within the left kidney. These are technically due to small to characterize. These do not appear to represent simple cysts. Therefore, statistically these represent hyperdense cysts. Consider follow-up renal ultrasound in 6 months to one year to ensure stability. ACT 112: Negative or not required by law. Electronically signed by: Carlos Johns M.D. 11/21/2020 11:02 AM Discharge Plan Visit Data Chief Complaint: GI Assessment Stated Complaint: STOMACH,INTESTINAL BURNING ED Provider: Bryan Luciano Discharge Problem: Acute pancreatitis, Transaminitis Patient Disposition: Admitted As Inpatient Discharge Instructions Interventions: ED Discharge Assessment Last Done: 11/21/20 14:09
[2020-11-21] MEDS ORDERED: ONDANSETRON INJ 2 MG/ML 2 ML VIAL IV STA (10:09)
[2020-11-21] MEDS ORDERED: SODIUM CHLORIDE 0.9% 500 ML IV STA (10:09)
[2020-11-21] MEDS ORDERED: MoRPHine SULFATE 4 MG/ML 1 ML CARP\\VIAL IV STA (10:09)
[2020-11-21 10:19] LABS: Hematocrit (blood only) 37.8 % (37-47); Mean Corpuscular Hemoglobin 30.1 pg (25-34); Mean Corpuscular Hgb Conc 34.4 g/dL (32-36); Mean Corpuscular Volume 87.5 fL (80-100); Mean Platelet Volume 10.6 fL (7.4-10.4); Platelet Count 252 K/uL (130-400); RDW Coefficient of Variation 14.1 % (11.5-14.5); RDW Standard Deviation 45.2 fL (36.4-46.3); Red Blood Count 4.32 M/uL (4.2-5.4); White Blood Count 25.01 K/uL (4.8-10.8)
[2020-11-21] MEDS ORDERED: MoRPHine SULFATE 2 MG/ML CARP ONE (10:23)
[2020-11-21 10:27] LABS: Alanine Aminotransferase 624 U/L (12-78); Albumin Level 3.5 gm/dl (3.4-5.0); Aspartate Aminotransferase 204 U/L (15-37); BUN Creatinine Ratio 18.5 (10-20); Blood Urea Nitrogen 20 mg/dl (7-18); Calcium 8.9 mg/dl (8.5-10.1); Carbon Dioxide 28 mmol/L (21-32); Chloride 95 mmol/L (98-107); Creatinine Clr Calc Pharmacy 43.5 ml/min; Est GFR (African American) 57.7 ml/min; Est GFR (Non-African American) 49.8 ml/min; Glucose 156 mg/dl (70-99); Lipase 1174 U/L (73-393); Potassium 3.5 mmol/L (3.5-5.1); Sodium 130 mmol/L (136-145)
[2020-11-21 10:32] LABS: Albumin Globulin Ratio 0.7 (0.9-2); Alkaline Phosphatase 221 U/L (45-117); Bilirubin,Total 1.9 mg/dl (0.2-1); Globulin 4.9 gm/dl (2.5-4.0); Total Protein 8.4 gm/dl (6.4-8.2); Troponin I < 0.015 ng/ml (0-0.045)
[2020-11-21 10:40] LABS: Basophils # (auto) 0.02 K/uL (0-0.2); Basophils % (auto) 0.1 %; Immature Granulocytes # (auto) 0.06 K/uL (0.00-0.02); Immature Granulocytes % (auto) 0.2 %; Lymphocytes # (auto) 1.42 K/uL (1.2-3.4); Lymphocytes % (auto) 5.7 %; Monocytes # (auto) 1.67 K/uL (0.11-0.59); Monocytes % (auto) 6.7 %; Neutrophils # (auto) 21.84 K/uL (1.4-6.5); Neutrophils % (auto) 87.3 %
[2020-11-21 10:42] LABS: Appearance Urine Cloudy (Clear); Blood Urine Negative (Negative); Color Urine Orange; Epithelial Cell Urine Auto >30 /lpf (0-5); Glucose Urine UA Negative (Negative); Ketones Urine Trace (Negative); Leukocyte Esterase Urine 1+ (Negative); Nitrite Urine Positive (Negative); Protein Urine 2+ (Negative); Specific Gravity Urine 1.035 (1.000-1.030); Urobilinogen Urine Negative (Negative)
[2020-11-21 10:44] LABS: Bilirubin Urine 2+ (Negative)
[2020-11-21] MEDS ORDERED: PIPERACILL/TAZOBAC CONSULT ACTIVE PRN (10:44)
[2020-11-21] MEDS ORDERED: PIPERACILLIN/TAZOBACTAM 4.5 GM/120 ML BAG IV ONE (10:44)
[2020-11-21] MEDS ORDERED: OPTIRAY 320 100ml IV ONE (10:47)
[2020-11-21 10:54] LABS: Mucus Urine Present (None Prsent)
[2020-11-21 10:55] LABS: Bacteria Urine Automated 1+ (Negative)
--- NOTE | 2020-11-21 11:04 | CT Scan Report ---
ABDOMEN AND PELVIS CT WITH IV CONTRAST CT DOSE: 290.91 mGy.cm HISTORY: diffuse ab pain, migratory from epigastric pain-> suprapubic TECHNIQUE: Multiaxial CT images of the abdomen and pelvis were performed following the use of intrave nous contrast. A dose lowering technique was utilized adhering to the principles of ALARA. COMPARISON STUDY: None. FINDINGS: A few small bibasilar linear densities consistent with subsegmental atelectasis. No pneumop eritoneum. No pneumatosis. No suspicious lytic are blastic osseous lesions. Cholecystectomy. There ar e 2 hypodense lesions within the left hepatic lobe which measure up to 1 cm. These favor cysts. The m ain portal vein is patent. No retroperitoneal lymphadenopathy. Normal caliber abdominal aorta. The sp deysi and adrenal glands unremarkable. A 1.9 cm right renal cyst. No hydronephrosis. There are 2 hypod ense lesions within the left kidney which do not clearly represent simple cysts. These measure up to 8 mm and is therefore too small to characterize. Statistically these represent small hyperdense cysts . Mild peripancreatic inflammatory change is noted. This is consistent with acute pancreatitis. No ev idence for pancreatic necrosis or peripancreatic fluid collections at this time. There is trace ascit es seen within the abdomen. The superior mesenteric vein and artery are patent. Questionable thickeni ng of the proximal duodenum is likely reactive to the acute pancreatitis. Mild bladder wall thickenin g. This is likely due to underdistention. Hysterectomy. Colonic diverticulosis. No evidence for acute diverticulitis. No evidence for bowel obstruction. The appendix is partially obscured by the trace p elvic fluid but is likely within the range of normal limits. IMPRESSION: 1. Acute pancreatitis. 2. Cholecystectomy and hysterectomy. 3. No evidence for bowel obstruction. 4. Colonic diverticulosis. No evidence for acute diverticulitis. 5. Subcentimeter hypodensities within the left kidney. These are technically due to small to characte rize. These do not appear to represent simple cysts. Therefore, statistically these represent hyperde nse cysts. Consider follow-up renal ultrasound in 6 months to one year to ensure stability. ACT 112: Negative or not required by law. Electronically signed by: Carlos Johns M.D. 11/21/2020 11:02 AM
[2020-11-21] MEDS ORDERED: SODIUM CHLORIDE 0.9% 1000ML 1,000 ML IV ONE (11:37)
--- NOTE | 2020-11-21 11:38 | History & Physical Report ---
Date of Service November 21, 2020 Assessment & Plan (1) Acute pancreatitis: Plan: Admit to med/tele Suspect secondary to biliary obstruction given concurrent elevated LFTs. Prior cholecystectomy. NSS 500ml bolus given in ER. Additional 1L bolus now then 250ml/hr. NPO Consult GI - discussed with [facility] and planning for ERCP/EUS, no need for MRCP (2) Acute cholangitis: Plan: Suspected with fever, chills, T35.7 degrees celsius, significantly elevated WBC (out of proportion for pancreatitis alone), elevated LFTs Follow up blood cultures Continue IV Zosyn Consult GI as above (3) Elevated LFTs: Plan: Suspected choledocholithiasis/cholangitis ERCP/EUS as above (4) Renal cyst: Plan: Consider follow up US in approximately 6 months (5) Hypertension: Plan: Continue metoprolol succinate 12.5mg PO daily Hold lisinopril given current infection (6) Hypothyroid: Plan: Continue levothyroxine 75 mcg PO daily when able to take PO meds (7) HLD (hyperlipidemia): Plan: Continue pravastatin when able to take PO meds Plan: VTE prophylaxis - Lovenox 40mg SQ daily Diet - NPO Disposition - admit to med/tele for close monitoring Admission and Anticipated Discharge Date Admission Date: November 21, 2020 History of Present Illness Chief Complaint: Abdominal pain Primary Care Provider: Adrienne Loyd DO Milly Rutherford is a 75 year old female who presented to the ER with abdominal pain progressively getting worse over the last 5 days. Abdominal pain, epigastric, current severity 6-7/10, worse around 8/10, radiates round back. She was prescribed omeprazole and famotidine 3 days ago which have not helped her symptoms. Associated nausea, loss of appetite, fevers and chills. Tuesday had 5 bowel movements but none since then till this morning. In the ER WBC 25.01, lipase 1174, Total bilirubin 1.9, AST 204, ALT 624, ALP 221. CT A/P showed findings consistent with acute pancreatitis. She has had a prior cholecystectomy (20 years ago). She was referred to Medicine for admission and ongoing management of acute pancreatitis. Efrain Perry (significant other) - [phone]. Tried calling but no answer at time of admission. Allergies Allergy/AdvReac Type Severity Reaction Status Date / Time itraconazole Allergy Unknown heart races Verified 11/21/20 11:17 metoclopramide Allergy Unknown Verified 11/21/20 11:17 Home Medications Medication Instructions Recorded Confirmed Type coenzyme Q10 100 mg capsule 100 mg PO HS 11/21/20 11/21/20 History (CoQ-10) famotidine 40 mg tablet (Pepcid) 40 mg PO HS 11/21/20 11/21/20 History levothyroxine 75 mcg tablet 75 mcg PO DAILYBB 11/21/20 11/21/20 History (Synthroid) lisinopril 5 mg tablet (Zestril) 2.5 mg PO QAM 11/21/20 11/21/20 History metoprolol succinate 25 mg 12.5 mg PO HS 11/21/20 11/21/20 History tablet,extended release 24 hr (Toprol XL) montelukast 10 mg tablet 10 mg PO QAM 11/21/20 11/21/20 History (Singulair) ondansetron HCl 4 mg tablet 4 mg PO UD 11/21/20 11/21/20 History (Zofran) pravastatin 20 mg tablet 20 mg PO HS 11/21/20 11/21/20 History Past Med/Surg History Medical History (Updated 11/21/20 @ 12:57 by Dewey Santana MD) High blood pressure HLD (hyperlipidemia) Hypertension Hypothyroid Surgical History H/O: hysterectomy Hx of cholecystectomy Social History Smoking Status: Never smoker Feels Safe at Home: Yes Review of Systems Review of Systems: All systems reviewed & are unremarkable except as noted in HPI & below Physical Exam Constitutional: WD/WN, vitals as above Eyes: + anicteric sclerae; normal pupil size ENMT: Mouth: + dry oral mucous membranes Neck: trachea midline, no thyromegaly Respiratory: normal respiratory effort, lungs clear to auscultation Cardiovascular: RRR, no murmur, no edema Gastrointestinal (Abdomen): Inspection/Auscultation: abdomen normal to inspection and normal bowel sounds; abdomen not distended Percussion/Palpation: + abdomen tender (Epigastric), + guarding and abdomen soft; abdomen not rigid Musculoskeletal: no cyanosis or clubbing, extremities motor strength 5/5 Skin: no rashes, warm and dry Neurologic: moves all extremities and awake; no focal motor deficits and not confused Psychiatric: A+Ox3, euthymic affect Genitourinary: no CVA tenderness Results & Data Results & Data ([facility]) Vital Signs (Past 12 Hours) Vital Signs Temp Pulse Resp BP Pulse Ox 11/21/20 11:00 82 16 184/87 H 96 11/21/20 10:30 76 16 163/62 H 94 11/21/20 10:09 78 20 78 L 11/21/20 09:41 35.7 C L 67 20 149/80 H 97 Diagnostic Findings ABDOMEN AND PELVIS CT WITH IV CONTRAST CT DOSE: 290.91 mGy.cm HISTORY: diffuse ab pain, migratory from epigastric pain-> suprapubic TECHNIQUE: Multiaxial CT images of the abdomen and pelvis were performed following the use of intravenous contrast. A dose lowering technique was u tilized adhering to the principles of ALARA. COMPARISON STUDY: None. FINDINGS: A few small bibasilar linear densities consistent with subsegmental atelectasis. No pneumoperitoneum. No pneumatosis. No suspicious lytic are blastic osseous lesions. Cholecystectomy. There are 2 hypodense lesions within the left hepatic lobe which measure up to 1 cm. These favor cysts. The main portal vein is patent. No retroperitoneal lymphadenopathy. Normal caliber abdominal aorta. The spleen and adrenal glands unremarkable. A 1.9 cm right renal cyst. No hydronephrosis. There are 2 hypodense lesions within the left kidney which do not clearly represent simple cysts. These measure up to 8 mm and is therefore too small to characterize. Statistically these represent small hyperdense cysts. Mild peripancreatic inflammatory change is noted. This is consistent with acute pancreatitis. No evidence for pancreatic necrosis or peripancreatic fluid collections at this time. There is trace ascites seen within the abdomen. The superior mesenteric vein and artery are patent. Questionable thickening of the proximal duodenum is likely reactive to the acute pancreatitis. Mild bladder wall thickening. This is likely due to underdistention. Hysterectomy. Colonic diverticulosis. No evidence for acute diverticulitis. No evidence for bowel obstruction. The appendix is partially obscured by the trace pelvic fluid but is likely within the range of normal limits. IMPRESSION: 1. Acute pancreatitis. 2. Cholecystectomy and hysterectomy. 3. No evidence for bowel obstruction. 4. Colonic diverticulosis. No evidence for acute diverticulitis. 5. Subcentimeter hypodensities within the left kidney. These are technically due to small to characterize. These do not appear to represent simple cysts. Therefore, statistically these represent hyperdense cysts. Consider follow-up renal ultrasound in 6 months to one year to ensure stability. PG Care Time/CCT Total # of Minutes Spent Total Time Spent with Patient: Total time spent is greater than 50% in coordination of care (as documented) at patient's floor/unit and/or counseling patient: Coding Level of Care Code 81415 Initial Inpt Care Lvl 3 Diagnoses Acute pancreatitis K85.90 Elevated LFTs R79.89 Hypertension I10 Hypothyroid E03.9 Acute cholangitis K83.09 Renal cyst N28.1 HLD (hyperlipidemia) E78.5
[2020-11-21] MEDS ORDERED: HYDROmorphone INJ 0.5 MG/0.5 ML SYR IV STA (12:03)
--- NOTE | 2020-11-21 12:21 | Gastrointestinal Consultation ---
Date of Consultation November 21, 2020 Assessment & Plan (1) Elevated LFTs: 75 year old female admitted w/ pain, fevers imaging concerning for acute pancreatitis, elevated LFTs and leukocytosis raising the concern for cholangitis COVID-19 screen NPO EUS/ERCP today LR 150/200 mL/hr antiemetics PRN analgesia PRN Thank you for allowing us to participate in the care of this patient. Please call with any acute changes, questions or concerns. Please see addendum below with additional recommendation from my supervising physician. (2) Acute pancreatitis: Supervising Physician Co-Signing Physician Notes I saw and evaluated the patient. She notes that she has had intermittent discomfort with subjective fevers at home in addition to chills over the past few days. The symptoms have been becoming worse which prompted her to seek evaluation earlier today. In the emergency room she was found to have a imaging evidence of pancreatitis, a significant leukocytosis, and marked elevation of her liver associated enzymes. Her past surgical history is notable for a hysterectomy in addition to a cholecystectomy performed over 20 years ago for gallstones. The patient also admits to intermittent postprandial abdominal discomfort which has been ongoing for several weeks. Physical examination Faint scleral icterus noted Right-sided abdominal tenderness noted Impression: Patient presenting with signs and symptoms suggestive of a ascending cholangitis. Given the patient's presentation I think it would be prudent to proceed with urgent biliary decompression this afternoon. We have discussed the risks to include bleeding, infection, perforation, pain, failed biliary cannulation and need for follow-up studies. Recommendations Broad-spectrum antibiotic coverage ERCP pending today History of Present Illness Reason for Consultation: gallstone panc Requesting Physician: Esther Attending Physician: Esther History of Present Illness 75 year old female w/ history of HTN, dyslipidemia, hypothyroidism, others below who presented to the ED w/ fevers and abdominal pain, admitted w/ pancreatitis, leukocytosis and elevated LFTs. COVID-19 pending. Clinical concern for cholangitis. Pt was seen and evaluated, chart reviewed. Notes her symptoms started around Tuesday. Saw her PCP who started antacid medications but notes her symptoms persisted and worsened and she developed fevers, nausea and emesis x 1 prompted ED care. Today notes persistent pain. Decreased appetite and nausea. No emesis today. Denies change in her bowels specifically denies black/bloody stools. She is febrile, hypertensive. Leukocytosis at 25k. Tb 1.9, AST 204, ALT 624, ALKP 221, lipase 1174 CTAP 2020: Acute pancreatitis. Cholecystectomy and hysterectomy. No evidence for bowel obstruction. Colonic diverticulosis. No evidence for acute diverticulitis. Subcentimeter hypodensities within the left kidney. These are technically due to small to characterize. These do not appear to represent simple cysts. Therefore, statistically these represent hyperdense cysts. Consider follow-up renal ultrasound in 6 months to one year to ensure stability. Allergies Allergy/AdvReac Type Severity Reaction Status Date / Time itraconazole Allergy Unknown heart races Verified 11/21/20 11:17 metoclopramide Allergy Unknown Verified 11/21/20 11:17 Home Medications Medication Instructions Recorded Confirmed Type coenzyme Q10 100 mg capsule 100 mg PO HS 11/21/20 11/21/20 History (CoQ-10) famotidine 40 mg tablet (Pepcid) 40 mg PO HS 11/21/20 11/21/20 History levothyroxine 75 mcg tablet 75 mcg PO DAILYBB 11/21/20 11/21/20 History (Synthroid) lisinopril 5 mg tablet (Zestril) 2.5 mg PO QAM 11/21/20 11/21/20 History metoprolol succinate 25 mg 12.5 mg PO HS 11/21/20 11/21/20 History tablet,extended release 24 hr (Toprol XL) montelukast 10 mg tablet 10 mg PO QAM 11/21/20 11/21/20 History (Singulair) ondansetron HCl 4 mg tablet 4 mg PO UD 11/21/20 11/21/20 History (Zofran) pravastatin 20 mg tablet 20 mg PO HS 11/21/20 11/21/20 History Patient History Medical History (Updated 11/21/20 @ 15:19 by Carlos Finnegan MD) High blood pressure HLD (hyperlipidemia) Hypertension Hyponatremia Hypothyroid Left bundle branch block Surgical History H/O: hysterectomy Hx of cholecystectomy Social History Smoking Status: Never smoker Hx Alcohol Use: No Hx Substance Use: No Preferred Language: Citizen Of [place] Bench Hand Required: No Beliefs That Will Affect Care: None Current Living Situation: Significant Other Other Information That Helps Us Care for You: No Feels Safe at Home: Yes Safety Concerns: Feels Safe At This Time Assistive Devices: None Review of Systems Review of Systems: All systems reviewed & are unremarkable except as noted in HPI & below Physical Exam Constitutional: WD/WN, vitals as above Neck: trachea midline, no thyromegaly Respiratory: normal respiratory effort, lungs clear to auscultation Cardiovascular: RRR, no murmur, no edema Gastrointestinal (Abdomen): Inspection/Auscultation: abdomen normal to inspection and normal bowel sounds Percussion/Palpation: + abdomen tender and abdomen soft; no guarding, abdomen not rigid, no abdominal mass and no ascites Skin: no rashes, warm and dry Results & Data ([facility]) Vital Signs (Past 12 Hours) Vital Signs Temp Pulse Pulse Resp BP BP Pulse Ox 11/21/20 12:02 77 18 163/73 H 96 11/21/20 11:00 82 16 184/87 H 96 11/21/20 10:30 76 16 163/62 H 94 11/21/20 10:09 78 20 78 L 11/21/20 09:41 35.7 C L 67 20 149/80 H 97 Laboratory Results 11/21/20 11/21/20 11/21/20 Range/Units 11:21 11:21 10:07 WBC (4.8-10.8) K/uL RBC (4.2-5.4) M/uL Hgb (12.0-16.0) g/dL Hct (37-47) % MCV (80-100) fL MCH (25-34) pg MCHC (32-36) g/dL RDW Std Deviation (36.4-46.3) fL RDW Coeff of Estefanía (11.5-14.5) % Plt Count (130-400) K/uL MPV (7.4-10.4) fL Immature Gran % (Auto) % Neut % (Auto) % Lymph % (Auto) % [place] % (Auto) % Eos % (Auto) % Baso % (Auto) % Neut # (Auto) (1.4-6.5) K/uL Lymph # (Auto) (1.2-3.4) K/uL [place] # (Auto) (0.11-0.59) K/uL Eos # (Auto) (0-0.5) K/uL Baso # (Auto) (0-0.2) K/uL Immature Gran # (Auto) (0.00-0.02) K/uL Sodium (136-145) mmol/L Potassium (3.5-5.1) mmol/L Chloride (98-107) mmol/L Carbon Dioxide (21-32) mmol/L Anion Gap (3-11) BUN (7-18) mg/dl Creatinine (0.6-1.2) mg/dl Est Cr Clr Drug Dosing ml/min Est GFR ( Amer) ml/min Est GFR (Non-Af Amer) ml/min BUN/Creatinine Ratio (10-20) Glucose (70-99) mg/dl Calcium (8.5-10.1) mg/dl Total Bilirubin (0.2-1) mg/dl AST (15-37) U/L ALT (12-78) U/L Alkaline Phosphatase (45-117) U/L Troponin I (0-0.045) ng/ml Total Protein (6.4-8.2) gm/dl Albumin (3.4-5.0) gm/dl Globulin (2.5-4.0) gm/dl Albumin/Globulin Ratio (0.9-2) Lipase (73-393) U/L Urine Color [place] Urine Appearance Cloudy A (Clear) Urine pH 5.0 (4.5-7.5) Ur Specific [place] 1.035 H (1.000-1.030) Urine Protein 2+ H (Negative) Urine Glucose (UA) Negative (Negative) Urine Ketones Trace H (Negative) Urine Blood Negative (Negative) Urine Nitrite Positive A (Negative) Urine Bilirubin 2+ H (Negative) Urine Urobilinogen Negative (Negative) Ur Leukocyte Esterase 1+ H (Negative) Urine WBC (Auto) 10-30 H (0-5) /hpf Urine RBC (Auto) 10-30 H (0-4) /hpf U Hyaline Cast (Auto) 1-5 (0-5) /lpf U Epithel Cells (Auto) >30 H (0-5) /lpf Urine Bacteria (Auto) 1+ H (Negative) Urine Mucus Present A (None Prsent) COVID-19 Eval Order Covid19 at [facility] SARS-CoV-2 (PCR) Pending 11/21/20 11/21/20 Range/Units 10:00 10:00 WBC 25.01 H (4.8-10.8) K/uL RBC 4.32 (4.2-5.4) M/uL Hgb 13.0 (12.0-16.0) g/dL Hct 37.8 (37-47) % MCV 87.5 (80-100) fL MCH 30.1 (25-34) pg MCHC 34.4 (32-36) g/dL RDW Std Deviation 45.2 (36.4-46.3) fL RDW Coeff of Estefanía 14.1 (11.5-14.5) % Plt Count 252 (130-400) K/uL MPV 10.6 H (7.4-10.4) fL Immature Gran % (Auto) 0.2 % Neut % (Auto) 87.3 % Lymph % (Auto) 5.7 % [place] % (Auto) 6.7 % Eos % (Auto) 0.0 % Baso % (Auto) 0.1 % Neut # (Auto) 21.84 H (1.4-6.5) K/uL Lymph # (Auto) 1.42 (1.2-3.4) K/uL [place] # (Auto) 1.67 H (0.11-0.59) K/uL Eos # (Auto) 0.00 (0-0.5) K/uL Baso # (Auto) 0.02 (0-0.2) K/uL Immature Gran # (Auto) 0.06 H (0.00-0.02) K/uL Sodium 130 L (136-145) mmol/L Potassium 3.5 (3.5-5.1) mmol/L Chloride 95 L (98-107) mmol/L Carbon Dioxide 28 (21-32) mmol/L Anion Gap 7.0 (3-11) BUN 20 H (7-18) mg/dl Creatinine 1.10 (0.6-1.2) mg/dl Est Cr Clr Drug Dosing 43.5 ml/min Est GFR ( Amer) 57.7 ml/min Est GFR (Non-Af Amer) 49.8 ml/min BUN/Creatinine Ratio 18.5 (10-20) Glucose 156 H (70-99) mg/dl Calcium 8.9 (8.5-10.1) mg/dl Total Bilirubin 1.9 H (0.2-1) mg/dl AST 204 H (15-37) U/L ALT 624 H (12-78) U/L Alkaline Phosphatase 221 H (45-117) U/L Troponin I < 0.015 (0-0.045) ng/ml Total Protein 8.4 H (6.4-8.2) gm/dl Albumin 3.5 (3.4-5.0) gm/dl Globulin 4.9 H (2.5-4.0) gm/dl Albumin/Globulin Ratio 0.7 L (0.9-2) Lipase 1174 H (73-393) U/L Urine Color Urine Appearance (Clear) Urine pH (4.5-7.5) Ur Specific [place] (1.000-1.030) Urine Protein (Negative) Urine Glucose (UA) (Negative) Urine Ketones (Negative) Urine Blood (Negative) Urine Nitrite (Negative) Urine Bilirubin (Negative) Urine Urobilinogen (Negative) Ur Leukocyte Esterase (Negative) Urine WBC (Auto) (0-5) /hpf Urine RBC (Auto) (0-4) /hpf U Hyaline Cast (Auto) (0-5) /lpf U Epithel Cells (Auto) (0-5) /lpf Urine Bacteria (Auto) (Negative) Urine Mucus (None Prsent) COVID-19 Eval Order SARS-CoV-2 (PCR)
[2020-11-21] MEDS ORDERED: SODIUM CHLORIDE 0.9% 1000ML 1,000 ML IV SCH (14:27)
[2020-11-21] MEDS ORDERED: ACETAMINOPHEN 1,000 MG/100 ML VIAL IV PRN (14:27)
[2020-11-21] MEDS ORDERED: HYDROmorphone INJ 0.5 MG/0.5 ML SYR IV PRN (14:27)
[2020-11-21] MEDS: LACTATED RINGER'S 1,000 ML IV SCH ×2 (14:52→19:46)
--- NOTE | 2020-11-21 15:24 | History & Physical Bridge Note ---
Date of Service November 21, 2020 History & Physical Bridge Note I have examined the patient, reviewed the History & Physical and in the interval since the performance of the History & Physical I have noted the following changes of clinical significance: no changes noted. The patient presents with signs and symptoms suggestive of ascending cholangitis and biliary pancreatitis. She notes that she has had symptoms for approximately 5 days and is described having shaking like chills at home for the past 72 hours. Her labs indicate a significant leukocytosis and elevation of her liver associated enzymes. Given this we will proceed directly to ERCP for biliary decompression. I have discussed the risks of the procedure to include bleeding, infection, perforation, pain, failed biliary cannulation and need for follow-up studies.
[2020-11-21] MEDS ORDERED: LIDOCAINE 2% 2 ML VIAL/AMP(20MG/ML) INFIL ONE (15:26)
[2020-11-21] MEDS ORDERED: PROPOFOL IV EMULSION 10 MG/ML 20 ML VIAL IV ONE (15:26)
[2020-11-21] MEDS ORDERED: ONDANSETRON INJ 2 MG/ML 2 ML VIAL ONE (15:26)
[2020-11-21] MEDS ORDERED: fentaNYL citrate 100 MCG/2 ML VIAL ONE (15:27)
--- NOTE | 2020-11-21 15:32 | Anesthesiology Consultation ---
Date of Service November 21, 2020 Assessment & Plan (1) Encounter for pre-operative examination: Chart Review Chart Review: Acceptable Risk for Surgery and Patient NOT seen in Pre Admission Testing Consults Requested none History Surgery Operation Date: 11/21/20 09:45 Proposed Procedures p Endoscopic Retrograde Cholangiopancreatogram - Thuan Lujan DO s Endoscopic Ultrasonography Upper - Thuan Lujan DO Height/Weight Height: 5 ft 4 in Weight: 69.2 kg Allergies Allergy/AdvReac Type Severity Reaction Status Date / Time itraconazole Allergy Unknown heart races Verified 11/21/20 11:17 metoclopramide Allergy Unknown Verified 11/21/20 11:17 Medications Home Medications Medication Instructions Recorded Confirmed Last Taken coenzyme Q10 100 mg capsule 100 mg PO HS 11/21/20 11/21/20 11/20/20 (CoQ-10) famotidine 40 mg tablet (Pepcid) 40 mg PO HS 11/21/20 11/21/20 11/20/20 levothyroxine 75 mcg tablet 75 mcg PO DAILYBB 11/21/20 11/21/20 11/21/20 (Synthroid) lisinopril 5 mg tablet (Zestril) 2.5 mg PO QAM 11/21/20 11/21/20 11/21/20 metoprolol succinate 25 mg 12.5 mg PO 11/21/20 11/21/20 11/20/20 tablet,extended release 24 hr (Toprol XL) montelukast 10 mg tablet 10 mg PO QAM 11/21/20 11/21/20 11/21/20 (Singulair) ondansetron HCl 4 mg tablet 4 mg PO UD 11/21/20 11/21/20 Unknown (Zofran) pravastatin 20 mg tablet 20 mg PO 11/21/20 11/21/20 11/20/20 Active Medications Generic Name Dose Route Start Last Admin Trade Name Freq PRN Reason Stop Dose Admin Acetaminophen 1,000 mg in 100 mls @ 400 mls/hr 11/21/20 14:27 11/21/20 14:59 Ofirmev IV 11/24/20 14:26 400 mls/hr Q8H PRN Administration Pain or Fever Lactated Ringer's 1,000 mls @ 200 mls/hr 11/21/20 14:45 11/21/20 14:52 Lr IV 12/21/20 14:44 200 mls/hr .Q5H TODD Administration NPO Date Last Intake of Fluids: 11/21/20 Time Last Intake of Fluids: 07:00 Date Last Intake of Solids: 11/21/20 Time Last Intake of Solids: 07:00 Past Medical History Medical History High blood pressure HLD (hyperlipidemia) Hypertension Hyponatremia Hypothyroid Left bundle branch block Exercise / Class Metabolic Activity III < 4 Walking/Shop/Light housework no chest pain or sob, no cough or fever Past Surgical History Surgical History H/O: hysterectomy Hx of cholecystectomy Past Anesthesia History No Hx of Anesthesia Complications and No Family Hx of Anesthesia Complications Social History Smoking Status: Never smoker Hx Alcohol Use: No Hx Substance Use: No substance use type: does not use Physical Exam Vital Signs Last Vital Signs Temp 36.8 C 11/21/20 14:41 Pulse 69 11/21/20 14:41 Resp 16 11/21/20 14:00 BP 157/67 H 11/21/20 14:41 Pulse Ox 97 11/21/20 14:41 Testing Laboratory Results 11/21/20 10:00 11/21/20 10:00 Urine Color [place] 11/21/20 10:07 Urine Appearance Cloudy (Clear) A 11/21/20 10:07 Urine pH 5.0 (4.5-7.5) 11/21/20 10:07 Ur Specific [place] 1.035 (1.000-1.030) H 11/21/20 10:07 Urine Protein 2+ (Negative) H 11/21/20 10:07 Urine Glucose (UA) Negative (Negative) 11/21/20 10:07 Urine Ketones Trace (Negative) H 11/21/20 10:07 Urine Nitrite Positive (Negative) A 11/21/20 10:07 Ur Leukocyte Esterase 1+ (Negative) H 11/21/20 10:07 Urine WBC (Auto) 10-30 /hpf (0-5) H 11/21/20 10:07 Urine RBC (Auto) 10-30 /hpf (0-4) H 11/21/20 10:07 U Hyaline Cast (Auto) 1-5 /lpf (0-5) 11/21/20 10:07 U Epithel Cells (Auto) >30 /lpf (0-5) H 11/21/20 10:07 Urine Bacteria (Auto) 1+ (Negative) H 11/21/20 10:07 Electrocardiogram Date: 11/21/20 Findings: + NSR @ (72) and + LBBB (similar to 2017 EKG) Other Testing ABDOMEN AND PELVIS CT WITH IV CONTRAST CT DOSE: 290.91 mGy.cm HISTORY: diffuse ab pain, migratory from epigastric pain-> suprapubic TECHNIQUE: Multiaxial CT images of the abdomen and pelvis were performed following the use of intravenous contrast. A dose lowering technique was utilized adhering to the principles of ALARA. COMPARISON STUDY: None. FINDINGS: A few small bibasilar linear densities consistent with subsegmental atelectasis. No pneumoperitoneum. No pneumatosis. No suspicious lytic are blastic osseous lesions. Cholecystectomy. There are 2 hypodense lesions within the left hepatic lobe which measure up to 1 cm. These favor cysts. The main portal vein is patent. No retroperitoneal lymphadenopathy. Normal caliber abdominal aorta. The spleen and adrenal glands unremarkable. A 1.9 cm right renal cyst. No hydronephrosis. There are 2 hypodense lesions within the left kidney which do not clearly represent simple cysts. These measure up to 8 mm and is therefore too small to characterize. Statistically these represent small hyperdense cysts. Mild peripancreatic inflammatory change is noted. This is consistent with acute pancreatitis. No evidence for pancreatic necrosis or peripancreatic fluid collections at this time. There is trace ascites seen within the abdomen. The superior mesenteric vein and artery are patent. Questionable thickening of the proximal duodenum is likely reactive to the acute pancreatitis. Mild bladder wall thickening. This is likely due to underdistention. Hysterectomy. Colonic diverticulosis. No evidence for acute diverticulitis. No evidence for bowel obstruction. The appendix is partially obscured by the trace pelvic fluid but is likely within the range of normal limits. IMPRESSION: 1. Acute pancreatitis. 2. Cholecystectomy and hysterectomy. 3. No evidence for bowel obstruction. 4. Colonic diverticulosis. No evidence for acute diverticulitis. 5. Subcentimeter hypodensities within the left kidney. These are technically due to small to characterize. These do not appear to represent simple cysts. Therefore, statistically these represent hyperdense cysts. Consider follow-up renal ultrasound in 6 months to one year to ensure stability. ACT 112: Negative or not required by law. Electronically signed by: Carlos Johns M.D. 11/21/2020 11:02 AM Dictated: 11/21/20 1056Transcribed: 11/21/20 1056
[2020-11-21] MEDS ORDERED: LABETALOL HCL IV 5 MG/ML 20ML IV PRN (15:35)
[2020-11-21] MEDS ORDERED: ONDANSETRON INJ 2 MG/ML 2 ML VIAL IV PRN (15:35)
[2020-11-21] MEDS ORDERED: PHENYLEPHRINE 100MCG/ML 5ML SYR IV PRN (15:35)
[2020-11-21] MEDS ORDERED: HYDROmorphone INJ 1 MG/ML SYRINGE IV PRN (15:35)
[2020-11-21] MEDS ORDERED: MEPERIDINE HCL 25 MG/ML CARP/VIAL IV PRN (15:35)
[2020-11-21] MEDS ORDERED: ATROPINE SULFATE 0.1 MG/ML 10ML SYR IV PRN (15:35)
[2020-11-21] MEDS ORDERED: fentaNYL citrate 100 MCG/2 ML VIAL IV PRN (15:35)
[2020-11-21] MEDS ORDERED: ePHEDrine sulfate 50 MG/ML AMP IV PRN (15:35)
[2020-11-21] MEDS ORDERED: INDOMETHACIN 50 MG SUPP PR ONE (16:00)
--- NOTE | 2020-11-21 16:09 | Post Operative Brief Note ---
Immediate Post Op Note v1 Date of Surgery November 21, 2020 Pre & Post Diagnosis Operation Date: 11/21/20 09:45 Pre-Op Diagnosis: Acute Cholangitis, Pancreatitis Post-Op Diagnosis: Acute Cholangitis, Pancreatitis I identified the patient and participated in the time-out.: Yes Procedure Operation Date: 11/21/20 09:45 Actual Procedures p Endoscopic Retrograde Cholangiopancreatogram, Sphincterotomy, Stone Extraction (Not Applicable) - Thuan Lujan DO Surgeon Thuan Lujan DO [place] none Estimated Blood Loss 0 Findings Consistent with Post-Op Diagnosis
--- NOTE | 2020-11-21 16:10 | Communication Note ---
Date of Service: November 21, 2020 The patient underwent ERCP this afternoon for suspected cholangitis. She was found to have evidence of an impacted stone within the distal common bile duct. The patient was treated with a biliary sphincterotomy, stone extraction and biliary stent placement Recommendations Continue antibiotic coverage for total of 10 days Avoid use of nonsteroidals for 1 week please Continue intravenous antibiotic coverage overnight Continue IV fluid hydration overnight Advance diet as tolerated on Tuesday if patient feeling well
--- NOTE | 2020-11-21 16:14 | GI REPORT ---
Patient Name: Milly Rutherford Procedure Date: 11/21/2020 3:20 PM Date of : 1945 Admit Type: Inpatient Age: 75 Gender: Female Attending MD: Thuan Lujan DO Procedure: ERCP Providers: Thuan Lujan DO Referring MD: Dewey Santana Md, Adrienne Loyd Indications: Abdominal pain of suspected biliary origin, Suspected ascending cholangitis Medicines: General Anesthesia Complications: No immediate complications. Estimated blood loss: Minimal. Estimated Blood Loss: Estimated blood loss was minimal. Procedure: Pre-Anesthesia Assessment: - Prior to the procedure, a History and Physical was performed, and patient medications, allergies and sensitivities were reviewed. The patient's tolerance of previous anesthesia was reviewed. - The risks and benefits of the procedure and the sedation options and risks were discussed with the patient. All questions were answered and informed consent was obtained. - Patient identification and proposed procedure were verified prior to the procedure by the physician, the nurse and the pigment and lacquer mixer. The procedure was verified in the procedure room. - Pre-procedure physical examination revealed no contraindications to sedation. - ASA Grade Assessment: III - A patient with severe systemic disease. - After reviewing the risks and benefits, the patient was deemed in satisfactory condition to undergo the procedure. - The anesthesia plan was to use general anesthesia. - Immediately prior to administration of medications, the patient was re-assessed for adequacy to receive sedatives. - The heart rate, respiratory rate, oxygen saturations, blood pressure, adequacy of pulmonary ventilation, and response to care were monitored throughout the procedure. - The physical status of the patient was re-assessed after the procedure. After obtaining informed consent, the scope was passed under direct vision. Throughout the procedure, the patient's blood pressure, pulse, and oxygen saturations were monitored continuously. The scope was introduced through the mouth, and advanced to the duodenum and used to cannulate the bile duct. The ERCP was accomplished without difficulty. The patient tolerated the procedure well. Findings: A criminal justice instructor film of the abdomen was obtained. Surgical clips, consistent with a previous cholecystectomy, were seen in the area of the right upper quadrant of the abdomen. The esophagus was successfully intubated under direct vision without detailed examination of the pharynx, larynx, and associated structures, and upper GI tract. The upper GI tract was grossly normal. The major papilla was edematous. The bile duct was deeply cannulated with the short-nosed traction sphincterotome and guidewire, PD not injected or cannulated today. Contrast was injected. I personally interpreted the bile duct images. Contrast extended to the entire biliary tree. A cholecystectomy had been performed. The main bile duct was moderately dilated, with a stone causing an obstruction. The largest diameter was 10 mm. Biliary sphincterotomy was made with a Fusion OMNI sphincterotome using ERBE electrocautery. There was no post-sphincterotomy bleeding. To discover objects, the biliary tree was swept with a 12 mm balloon starting at the bifurcation. One stone was removed. No stones remained. Pus was swept from the duct. One 10 Fr by 7 cm biliary stent with a single external flap and a single internal flap was placed 7 cm into the common bile duct. Bile flowed through the stent. The stent was in good position. The endoscope was withdrawn from the patient. The total fluoroscopy exposure time was 23 seconds. Indomethacin 100 mg was given via suppository to decrease the risk of post-ERCP pancreatitis (PEP). Impression: - The major papilla appeared edematous. - The entire main bile duct was moderately dilated, with a stone causing an obstruction. - The patient has had a cholecystectomy. - Choledocholithiasis was found. Complete removal was accomplished by biliary sphincterotomy and balloon extraction. - A biliary sphincterotomy was performed. - The biliary tree was swept and pus was found. - One biliary stent was placed into the common bile duct. - Indomethacin given to decrease risk of post-ERCP pancreatitis. Recommendation: - Avoid aspirin and nonsteroidal anti-inflammatory medicines for 1 week. - Clear liquid diet today. - Use broad spectrum antibiotics for 10 days. - Repeat ERCP in 6 weeks to remove stent. Thuan Lujan D.O. Thuan Lujan DO 11/21/2020 4:13:59 PM This report has been signed electronically. Note Initiated On: 11/21/2020 3:20 PM Number of Addenda: 0 I attest to the content of the Intraoperative Record and orders documented therein, exceptions below {[id number]}
--- NOTE | 2020-11-21 16:36 | Anesthesiology Progress Note ---
Date of Service November 21, 2020 Anesthesia Post Procedure Vital Signs Vital Signs: Temp Pulse Pulse Pulse Resp BP BP 11/21/20 16:25 72 14 156/63 H 11/21/20 16:15 86 17 146/72 H 11/21/20 16:07 36.3 C L 91 H 16 133/52 L 11/21/20 14:41 36.8 C 69 157/67 H 11/21/20 14:00 75 16 169/64 H 11/21/20 13:30 76 14 162/93 H 11/21/20 13:00 83 22 171/61 H 11/21/20 12:30 81 27 H 156/61 H 11/21/20 12:02 77 18 163/73 H 11/21/20 12:00 76 16 163/67 H 11/21/20 11:00 82 16 184/87 H 11/21/20 10:30 76 16 163/62 H 11/21/20 10:09 78 20 11/21/20 09:41 35.7 C L 67 20 149/80 H Pulse Ox 11/21/20 16:25 99 11/21/20 16:15 100 11/21/20 16:07 100 11/21/20 14:41 97 11/21/20 14:00 96 11/21/20 13:30 94 11/21/20 13:00 96 11/21/20 12:30 92 11/21/20 12:02 96 11/21/20 12:00 96 11/21/20 11:00 96 11/21/20 10:30 94 11/21/20 10:09 78 L 11/21/20 09:41 97 Pain Intensity Bilateral Abdomen: Pain Intensity: 2 Transfer of Care Handoff Completed per policy Notes Mental Status: alert / awake / arousable Patient Amnestic to Procedure: Yes Nausea / Vomiting: adequately controlled Pain: adequately controlled Airway Patency, RR, SpO2: stable & adequate BP & HR: stable & adequate Hydration State: stable & adequate Anesthetic Complications: no major complications apparent and Pt Satisfied with anesthetic care Notes: The patient is awake and comfortable. Her vital signs are stable.
--- NOTE | 2020-11-21 16:55 | Fluoroscopy Report ---
[place] ERCP biliary ductal CLINICAL HISTORY: EXPLORE DUCTS COMPARISON STUDY: CT of the abdomen and pelvis performed earlier today. FLUOROSCOPY TIME: 23 seconds. FLUOROSCOPIC IMAGES: 9 FINDINGS: Fluoroscopy was provided during ERCP. These images demonstrate cholecystectomy clips. The c ommon bile duct was cannulated. Balloon sweep through the common bile duct was performed. Biliary kim nt is in place. Intrahepatic bile ducts are partially opacified. IMPRESSION: Fluoroscopy provided during ERCP with placement of a biliary stent. ACT 112: Negative or not required by law. Electronically signed by: Jason Green M.D. 11/21/2020 4:54 PM
[2020-11-21] MEDS: PIPERACILLIN/TAZOBACTAM 3.375 GM in DEXTROSE 5% 100 ML IV SCH (17:13)
[2020-11-21] MEDS: METOPROLOL SUCC 25MG EXT REL TAB PO SCH (21:23)
[2020-11-21] MEDS: PRAVASTATIN SOD 20 MG TAB PO SCH (21:24)
[2020-11-22] MEDS: PIPERACILLIN/TAZOBACTAM 3.375 GM in DEXTROSE 5% 100 ML IV SCH ×3 (00:42→17:32)
[2020-11-22] MEDS: LACTATED RINGER'S 1,000 ML IV SCH ×4 (00:45→17:33)
[2020-11-22] MEDS: LEVOTHYROXINE SODIUM 75 MCG TABLET PO SCH (05:33)
--- NOTE | 2020-11-22 07:08 | Electrocardiogram Report ---
Test Reason : Blood Pressure : / mmHG Vent. Rate : 072 BPM Atrial Rate : 072 BPM P-R Int : 150 ms QRS Dur : 128 ms QT Int : 438 ms P-R-T Axes : 058 007 114 degrees QTc Int : 479 ms Normal sinus rhythm Left bundle branch block Abnormal ECG When compared with ECG of 09-FEB-2017 19:10, No significant change was found Confirmed by Peter Chau ([id number]) on 11/22/2020 7:07:48 AM Referred By: REFERRED SELF Confirmed By:Peter Chau
[2020-11-22] MEDS: ONDANSETRON INJ 2 MG/ML 2 ML VIAL IV PRN ×2 (07:34→21:13)
[2020-11-22 07:45] LABS: Basophils # (auto) 0.01 K/uL (0-0.2); Basophils % (auto) 0.1 %; Hematocrit (blood only) 29.8 % (37-47); Hemoglobin 10.1 g/dL (12.0-16.0); Immature Granulocytes # (auto) 0.05 K/uL (0.00-0.02); Immature Granulocytes % (auto) 0.3 %; Lymphocytes # (auto) 0.87 K/uL (1.2-3.4); Mean Corpuscular Hemoglobin 29.4 pg (25-34); Mean Corpuscular Hgb Conc 33.9 g/dL (32-36); Mean Corpuscular Volume 86.6 fL (80-100); Mean Platelet Volume 10.9 fL (7.4-10.4); Monocytes # (auto) 1.62 K/uL (0.11-0.59); Monocytes % (auto) 9.3 %; Neutrophils # (auto) 14.94 K/uL (1.4-6.5); Neutrophils % (auto) 85.3 %; Platelet Count 175 K/uL (130-400); RDW Coefficient of Variation 13.9 % (11.5-14.5); RDW Standard Deviation 44.2 fL (36.4-46.3); Red Blood Count 3.44 M/uL (4.2-5.4); White Blood Count 17.49 K/uL (4.8-10.8)
[2020-11-22 07:49] LABS: Albumin Level 2.4 gm/dl (3.4-5.0); BUN Creatinine Ratio 17.7 (10-20); Bilirubin Direct 1.1 mg/dl (0-0.2); Bilirubin,Total 1.7 mg/dl (0.2-1); Calcium 8.2 mg/dl (8.5-10.1); Creatinine Clr Calc Pharmacy 68.4 ml/min; Est GFR (African American) 97.9 ml/min; Est GFR (Non-African American) 84.5 ml/min; Potassium 3.4 mmol/L (3.5-5.1); Total Protein 6.2 gm/dl (6.4-8.2)
[2020-11-22] MEDS: MONTELUKAST SODIUM 10 MG TABLET PO SCH (10:16)
[2020-11-22] MEDS: lisinopril 2.5 MG TAB PO SCH (10:16)
[2020-11-22] MEDS: ENOXAPARIN INJ 40 MG/0.4 ML SYR SQ SCH (10:17)
--- NOTE | 2020-11-22 12:21 | Electrocardiogram Report ---
Test Reason : Blood Pressure : / mmHG Vent. Rate : 068 BPM Atrial Rate : 068 BPM P-R Int : 146 ms QRS Dur : 132 ms QT Int : 446 ms P-R-T Axes : 064 030 106 degrees QTc Int : 474 ms Normal sinus rhythm Left bundle branch block Abnormal ECG When compared with ECG of 21-NOV-2020 12:14, No significant change was found Confirmed by Philipp Gunter ([id number]) on 11/22/2020 12:20:28 PM Referred By: REFERRED SELF Confirmed By:Beau Gunter
--- NOTE | 2020-11-22 14:36 | Hospitalist Progress Note ---
Date of Service November 22, 2020 Assessment & Plan (1) Acute pancreatitis: Plan: - Suspect due to biliary obstruction - she did have a previous cholecystectomy - Lipase improved from 1100 to 324 - Continue pain control - Currently on a clear liquid diet - patient doesn't want to advance just yet which is reasonable - reports limited appetite - Continue LR but reduce to 100 mL/hr (2) Acute cholangitis: Plan: - S/P ERCP with stent and sphincterotomy on 21 November - Continue Zosyn - BCx - NGTD - GI following - avoid NSAIDs x 1 week; total Abx x 10 days; repeat ERCP in 6 weeks for stent removal (3) Elevated LFTs: Plan: - Related to choledocholithiasis/cholangitis - Improving (4) Renal cyst: Plan: - Consider follow up US in approximately 6 months (5) Hypertension: Plan: - Continue metoprolol succinate 12.5 mg PO daily and Lisinopril 2.5 mg daily (6) Hypothyroid: Plan: - Continue levothyroxine 75 mcg PO daily (7) HLD (hyperlipidemia): Plan: - Continue pravastatin 20 mg daily (8) Nonsustained ventricular tachycardia: Plan: - Has had multiple episodes of short runs of VT - no chest pain or SOB - EKG without acute ischemic changes but has a chronic LBBB - Continue to monitor on telemetry Plan: - VTE prophylaxis - Lovenox 40mg SQ daily - Disposition - Pain control and advance diet as tolerated Admission and Anticipated Discharge Date Admission Date: November 21, 2020 Subjective Pt reports abdominal bloating and achy abdominal pain. She hasn't gotten anything for pain. Given LFTs should avoid Tylenol and given sphincterotomy should avoid NSAIDs. Has had multiple beats of VT when having nausea - has a chronic LBBB but no acute ischemic findings. Review of Systems Review of Systems: REVIEW OF SYSTEMS General/Constitutional: Denies fever/chills ENT: Denies nasal drainage, sore throat, trouble swallowing; + fat lip (mid- upper lip) Cardiovascular: Denies chest pain, palpitations, edema Respiratory: Denies cough, sputum, SOB, wheezing, orthopnea GI: + abdominal pain, + intermittent nausea; Denies vomiting, constipation, diarrhea : Denies dysuria Musculoskeletal: Denies joint/muscle aches, weakness, swelling Neurologic: Denies dizziness/lightheadedness, numbness/tingling, weakness Hematologic/Lymphatic: Denies bleeding/clotting abnormalities Skin: Denies rash, itch Physical Exam Physical Exam: PHYSICAL EXAM General Appearance: WDWN in NAD who is A&O x 3 HEENT: Head is normocephalic/atraumatic; Hearing grossly intact; Mucous membranes moist; Pharynx negative for exudate/lesions; + mild swelling to isolated portion of the mid-upper lip, no swelling of the tongue, no swelling in the back of the throat Neck: Supple; Trachea midline; Neg JVD; Neg lymphadenopathy Heart: RRR with no M/G/R Lungs: CTA in all lung zhu bilaterally; Respirations unlabored; Neg accessory muscle use Abdomen: Soft, but bloated; Positive BS x 4 quadrants Extremities: Capillary refill < 2 seconds; Neg cyanosis or edema Neurological: Speech clear; Gross motor/sensory function intact; Neg focal moises rologic deficits Psychiatric: Appropriate mood/affect Skin: Normal Color; Warm/Dry Results & Data Results & [facility] ([facility]) Vital Signs (Past 12 Hours) Vital Signs Temp Pulse Pulse Resp BP Pulse Ox 11/22/20 11:22 37.3 C 63 18 186/73 H 93 11/22/20 11:06 74 11/22/20 09:45 67 14 153/60 H 96 11/22/20 07:28 37.1 C 69 20 170/76 H 94 11/22/20 03:40 36.9 C 69 20 151/71 H 95 PG Care Time/CCT Total # of Minutes Spent Total Time Spent with Patient: Total time spent is greater than 50% in coordination of care (as documented) at patient's floor/unit and/or counseling patient: Coding Level of Care Code 97743 Subseq Hosp Care Lvl 3 Diagnoses Acute pancreatitis K85.90 Acute pancreatitis complication: unspecified Pancreatitis type: unspecified pancreatitis type Acute cholangitis K83.09 Elevated LFTs R79.89 Renal cyst N28.1 Hypertension I10 Hypothyroid E03.9 HLD (hyperlipidemia) E78.5 Nonsustained ventricular tachycardia I47.2 (1) Acute pancreatitis Acute pancreatitis complication: unspecified Pancreatitis type: unspecified pancreatitis type Qualified Code(s): K85.90 - Acute pancreatitis without necrosis or infection, unspecified
[2020-11-22] MEDS ORDERED: hydrALAZINE HCL 20 MG/ML VIAL IV PRN (16:41)
--- NOTE | 2020-11-22 17:18 | Gastroenterology Progress Note ---
Date of Service November 22, 2020 Assessment & Plan (1) Acute cholangitis: Plan: s/p ERCP with stone removal and stent placement. Recs: continue abx for total of 10 days ERCP in 6 weeks to remove stent avoid NSAIDS for 1 week can advance diet as tolerated supportive care, anti-emetics prn rest as per primary team Admission and Anticipated Discharge Date Admission Date: November 21, 2020 Subjective no events overnight, has persistent bloating in her abdomen, no nausea/vomiting, tolerating clear liquids but has decreased appetite. ERCP with stent placement, stone removal for cholangitis yesterday. on abx. labs reviewed. Review of Systems Constitutional: no fever and no chills Respiratory: no cough, no dyspnea and no dyspnea on exertion Cardiovascular: no chest pain and no dyspnea Gastrointestinal: as per Subjective / HPI Psychiatric: no depression and no anxiety Physical Exam Constitutional: WD/WN, vitals as above Respiratory: normal respiratory effort, lungs clear to auscultation Cardiovascular: RRR, no murmur, no edema Gastrointestinal (Abdomen): normal bowel sounds, soft, nontender, no hepatosplenomegaly Musculoskeletal: no lower extremity edema Psychiatric: A+Ox3, euthymic affect Results & Data Results & Data ([facility]) Vital Signs (Past 12 Hours) Vital Signs Temp Pulse Pulse Resp BP Pulse Ox 11/22/20 15:34 69 11/22/20 15:04 37.2 C 68 18 172/79 H 95 11/22/20 11:22 37.3 C 63 18 186/73 H 93 11/22/20 11:06 74 11/22/20 09:45 67 14 153/60 H 96 11/22/20 07:28 37.1 C 69 20 170/76 H 94 PG Care Time/CCT Total # of Minutes Spent Total Time Spent with Patient: Total time spent is greater than 50% in coordination of care (as documented) at patient's floor/unit and/or counseling patient: Coding Level of Care Code 54888 Subseq Hosp Care Lv 3 Diagnoses Acute cholangitis K83.09
[2020-11-22] MEDS: PRAVASTATIN SOD 20 MG TAB PO SCH (21:06)
[2020-11-22] MEDS: METOPROLOL SUCC 25MG EXT REL TAB PO SCH (21:06)
[2020-11-23] MEDS: PIPERACILLIN/TAZOBACTAM 3.375 GM in DEXTROSE 5% 100 ML IV SCH ×3 (02:47→17:02)
[2020-11-23] MEDS: LACTATED RINGER'S 1,000 ML IV SCH ×3 (03:37→23:45)
[2020-11-23 06:16] LABS: Basophils # (auto) 0.01 K/uL (0-0.2); Basophils % (auto) 0.1 %; Eosinophils # (auto) 0.04 K/uL (0-0.5); Eosinophils % (auto) 0.3 %; Hematocrit (blood only) 28.7 % (37-47); Hemoglobin 9.7 g/dL (12.0-16.0); Immature Granulocytes # (auto) 0.03 K/uL (0.00-0.02); Immature Granulocytes % (auto) 0.2 %; Lymphocytes # (auto) 1.09 K/uL (1.2-3.4); Lymphocytes % (auto) 8.5 %; Mean Corpuscular Hemoglobin 29.4 pg (25-34); Mean Corpuscular Hgb Conc 33.8 g/dL (32-36); Mean Platelet Volume 10.3 fL (7.4-10.4); Monocytes # (auto) 0.92 K/uL (0.11-0.59); Monocytes % (auto) 7.1 %; Neutrophils # (auto) 10.79 K/uL (1.4-6.5); Neutrophils % (auto) 83.8 %; Platelet Count 195 K/uL (130-400); RDW Coefficient of Variation 13.9 % (11.5-14.5); RDW Standard Deviation 44.7 fL (36.4-46.3); White Blood Count 12.88 K/uL (4.8-10.8)
[2020-11-23] MEDS: LEVOTHYROXINE SODIUM 75 MCG TABLET PO SCH (06:19)
[2020-11-23 06:55] LABS: Albumin Level 2.3 gm/dl (3.4-5.0); BUN Creatinine Ratio 12.4 (10-20); Bilirubin Direct 0.6 mg/dl (0-0.2); Bilirubin,Total 1.1 mg/dl (0.2-1); Calcium 8.4 mg/dl (8.5-10.1); Creatinine Clr Calc Pharmacy 82.9 ml/min; Est GFR (African American) 105.4 ml/min; Est GFR (Non-African American) 90.9 ml/min; Potassium 3.1 mmol/L (3.5-5.1); Total Protein 6.2 gm/dl (6.4-8.2)
[2020-11-23] MEDS ORDERED: POTASSIUM CHLORIDE CRTAB 20 MEQ TABCR PO ONE (08:45)
[2020-11-23] MEDS: ENOXAPARIN INJ 40 MG/0.4 ML SYR SQ SCH (09:28)
[2020-11-23] MEDS: lisinopril 2.5 MG TAB PO SCH (09:28)
[2020-11-23] MEDS: MONTELUKAST SODIUM 10 MG TABLET PO SCH (09:28)
[2020-11-23] MEDS ORDERED: SIMETHICONE 80 MG CHEW PO ONE (11:41)
--- NOTE | 2020-11-23 13:00 | XRay Report ---
KUB CLINICAL HISTORY: Assess for ileus COMPARISON STUDY: CT of the abdomen and pelvis November 21, 2020. FINDINGS: Cholecystectomy clips and a common bile duct stent are noted. The bowel gas pattern is norm al. There are no urinary calculi. IMPRESSION: Normal bowel gas pattern. No evidence for a bowel obstruction. ACT 112: Negative or not required by law. Electronically signed by: Jason Green M.D. 11/23/2020 12:59 PM
--- NOTE | 2020-11-23 18:25 | Hospitalist Progress Note ---
Date of Service November 23, 2020 Assessment & Plan (1) Acute pancreatitis: Plan: - Suspect due to biliary obstruction - she did have a previous cholecystectomy - Lipase improved from 1100 to 324 - Continue pain control - hasn't really had pain more bloating that Simethicone helped with - Continue Simethicone PRN; ambulation as this is helping her bloating - Currently on a clear liquid diet - anticipates trying full liquids tonight and will advance as tolerated - Continue LR but reduce to 100 mL/hr - possibly cont stop tomorrow if appetite is improving - Ordered KUB given ongoing bloating and decreased appetite - normal gas patterns and does not seem to be ileus/no obstruction (2) Acute cholangitis: Plan: - S/P ERCP with stent and sphincterotomy on 21 November - Continue Zosyn - BCx - NGTD - GI following - avoid NSAIDs x 1 week; total Abx x 10 days; repeat ERCP in 6 weeks for stent removal (3) Elevated LFTs: Plan: - Related to choledocholithiasis/cholangitis - Improving (4) Renal cyst: Plan: - Consider follow up US in approximately 6 months (5) Hypertension: Plan: - Continue metoprolol succinate 12.5 mg PO daily and Lisinopril 2.5 mg daily - Running high - Hydralazine PRN; may be due to discomfort/diastolic appropriate (6) Hypothyroid: Plan: - Continue levothyroxine 75 mcg PO daily (7) HLD (hyperlipidemia): Plan: - Continue pravastatin 20 mg daily (8) Nonsustained ventricular tachycardia: Plan: - Has had multiple episodes of short runs of VT earlier on but no further episodes - no chest pain or SOB - EKG without acute ischemic changes but has a chronic LBBB - Continue to monitor on telemetry Plan: - VTE prophylaxis - Lovenox 40mg SQ daily - Disposition - Pain control and advance diet as tolerated; antibiotics x 10 total days Admission and Anticipated Discharge Date Admission Date: November 21, 2020 Review of Systems Review of Systems: REVIEW OF SYSTEMS General/Constitutional: Denies fever/chills Cardiovascular: Denies chest pain, palpitations, edema Respiratory: Denies cough, sputum, SOB, wheezing, orthopnea GI: + bloating, + intermittent nausea; Denies vomiting, constipation, diarrhea : Denies dysuria Musculoskeletal: Denies joint/muscle aches Neurologic: Denies dizziness/lightheadedness Physical Exam Physical Exam: PHYSICAL EXAM General Appearance: WDWN in NAD who is A&O x 3 HEENT: Head is normocephalic/atraumatic; Hearing grossly intact; Mucous membranes moist; Neck: Supple; Trachea midline; Neg JVD Heart: RRR with no M/G/R Lungs: CTA in all lung zhu bilaterally; Respirations unlabored; Neg accessory muscle use Abdomen: Soft, but bloated; Positive BS x 4 quadrants Neurological: Speech clear; Gross motor/sensory function intact; Neg focal neurologic deficits Psychiatric: Appropriate mood/affect Skin: Normal Color; Warm/Dry Results & Data Results & Data ([facility]) Vital Signs (Past 12 Hours) Vital Signs Temp Pulse Pulse Resp BP Pulse Ox 11/23/20 16:24 67 11/23/20 15:09 37.2 C 70 18 184/75 H 95 11/23/20 11:22 80 11/23/20 11:18 36.9 C 69 20 172/76 H 95 11/23/20 07:23 37.0 C 84 18 93 PG Care Time/CCT Total # of Minutes Spent Total Time Spent with Patient: Total time spent is greater than 50% in coordination of care (as documented) at patient's floor/unit and/or counseling patient: Coding Level of Care Code 21205 Subseq Hosp Care Lvl 3 Diagnoses Acute pancreatitis K85.90 Acute pancreatitis complication: unspecified Pancreatitis type: unspecified pancreatitis type Acute cholangitis K83.09 Elevated LFTs R79.89 Renal cyst N28.1 Hypertension I10 Hypothyroid E03.9 HLD (hyperlipidemia) E78.5 Nonsustained ventricular tachycardia I47.2 (1) Acute pancreatitis Acute pancreatitis complication: unspecified Pancreatitis type: unspecified pancreatitis type Qualified Code(s): K85.90 - Acute pancreatitis without necrosis or infection, unspecified
[2020-11-23] MEDS: ONDANSETRON INJ 2 MG/ML 2 ML VIAL IV PRN (18:27)
[2020-11-23] MEDS: SIMETHICONE 80 MG CHEW PO PRN (20:47)
[2020-11-23] MEDS: METOPROLOL SUCC 25MG EXT REL TAB PO SCH (20:48)
[2020-11-23] MEDS: PRAVASTATIN SOD 20 MG TAB PO SCH (20:48)
[2020-11-24] MEDS: PIPERACILLIN/TAZOBACTAM 3.375 GM in DEXTROSE 5% 100 ML IV SCH ×3 (01:04→16:30)
[2020-11-24] MEDS: LEVOTHYROXINE SODIUM 75 MCG TABLET PO SCH (06:03)
[2020-11-24 07:35] LABS: Basophils # (auto) 0.01 K/uL (0-0.2); Basophils % (auto) 0.1 %; Eosinophils # (auto) 0.07 K/uL (0-0.5); Eosinophils % (auto) 0.6 %; Hematocrit (blood only) 28.4 % (37-47); Hemoglobin 9.5 g/dL (12.0-16.0); Immature Granulocytes # (auto) 0.05 K/uL (0.00-0.02); Immature Granulocytes % (auto) 0.4 %; Lymphocytes # (auto) 1.11 K/uL (1.2-3.4); Lymphocytes % (auto) 9.4 %; Mean Corpuscular Hemoglobin 29.2 pg (25-34); Mean Corpuscular Hgb Conc 33.5 g/dL (32-36); Mean Corpuscular Volume 87.4 fL (80-100); Mean Platelet Volume 10.2 fL (7.4-10.4); Monocytes # (auto) 1.19 K/uL (0.11-0.59); Monocytes % (auto) 10.1 %; Neutrophils # (auto) 9.35 K/uL (1.4-6.5); Neutrophils % (auto) 79.4 %; Platelet Count 222 K/uL (130-400); RDW Coefficient of Variation 14.2 % (11.5-14.5); RDW Standard Deviation 45.4 fL (36.4-46.3); Red Blood Count 3.25 M/uL (4.2-5.4); White Blood Count 11.78 K/uL (4.8-10.8)
[2020-11-24] MEDS: ENOXAPARIN INJ 40 MG/0.4 ML SYR SQ SCH (07:38)
[2020-11-24] MEDS: SIMETHICONE 80 MG CHEW PO PRN (07:39)
[2020-11-24] MEDS: MONTELUKAST SODIUM 10 MG TABLET PO SCH (07:39)
[2020-11-24] MEDS: lisinopril 2.5 MG TAB PO SCH (07:39)
[2020-11-24 07:53] LABS: Albumin Level 2.3 gm/dl (3.4-5.0); BUN Creatinine Ratio 8.9 (10-20); Bilirubin Direct 0.6 mg/dl (0-0.2); Calcium 8.5 mg/dl (8.5-10.1); Creatinine Clr Calc Pharmacy 78.5 ml/min; Est GFR (African American) 103.7 ml/min; Est GFR (Non-African American) 89.5 ml/min; Potassium 3.3 mmol/L (3.5-5.1)
[2020-11-24 07:56] LABS: Bilirubin,Total 1.1 mg/dl (0.2-1); Total Protein 6.2 gm/dl (6.4-8.2)
[2020-11-24] MEDS ORDERED: POTASSIUM CHLORIDE CRTAB 20 MEQ TABCR PO STA (09:17)
[2020-11-24] MEDS: LACTATED RINGER'S 1,000 ML IV SCH (10:00)
--- NOTE | 2020-11-24 12:51 | Hospitalist Progress Note ---
Date of Service November 24, 2020 Assessment & Plan (1) Acute pancreatitis: Plan: - Due to biliary obstruction - she did have a previous cholecystectomy but was found to have an impacted stone in the CBD here removed with ERCP and had biliary stent placement - Lipase improved from 1100 to 324 and has no further pain - Continue Simethicone PRN; ambulation as this is helping her bloating -Advance to low-fat diet -DC IV fluids With pancreatitis associated [id number] flatus, no bowel movement. KUB without obstruction -Start docusate sodium and MiraLAX (2) Acute cholangitis: Plan: - S/P ERCP with stent placement and sphincterotomy on 21 November - Continue Zosyn and convert to oral antibiotics upon discharge to complete 10 days - BCx - NGTD - GI following - avoid NSAIDs x 1 week; total Abx x 10 days; repeat ERCP in 6 weeks for stent removal LFTs improving, remains afebrile (3) Elevated LFTs: Plan: - Related to choledocholithiasis/cholangitis - Improving daily Follow LFTs in the morning (4) Renal cyst: Plan: -Plan for follow up renal US versus CT renal in approximately 6 months (5) Hypertension: Plan: Blood pressures are controlled to mildly elevated - Continue metoprolol succinate 12.5 mg PO daily and Lisinopril 2.5 mg daily (6) Hypothyroid: Plan: - Continue levothyroxine 75 mcg PO daily No TSH in our system-check in the a.m. (7) HLD (hyperlipidemia): Plan: - Continue pravastatin 20 mg daily (8) Nonsustained ventricular tachycardia: Plan: - Has had multiple episodes of short runs of VT earlier on but no further episodes - no chest pain or SOB With a chronic LBBB-question if these were just PVCs? None further and has no evidence of heart failure - EKG without acute ischemic changes but has a chronic LBBB Can downgrade off telemetry Plan: - VTE prophylaxis - Lovenox 40mg SQ daily - Disposition -continued stay, downgrade to medical/surgical floor, possible discharge home tomorrow if continues to improve Admission and Anticipated Discharge Date Admission Date: November 21, 2020 Subjective Patient reports feeling much better than yesterday. No further gas pains and she is passing flatus. No bowel movement in 3 days. She is ambulating the halls without difficulty. Has a little occasional shortness of breath with lying flat. No chest pains. No nausea and she is ready to advance her diet. Telemetry with normal sinus rhythm PVCs with rates in the 70s to 80s Review of Systems Review of Systems: All systems reviewed & are unremarkable except as noted in HPI & below Physical Exam Constitutional: WD/WN, vitals as above Eyes: + anicteric sclerae Neck: trachea midline, no thyromegaly Respiratory: normal respiratory effort, lungs clear to auscultation Cardiovascular: RRR, no murmur, no edema Chest (Breasts): Chest: normal inspection of chest Gastrointestinal (Abdomen): Inspection/Auscultation: normal bowel sounds; abdomen not distended Percussion/Palpation: + abdomen tender (Mild in right upper quadrant without guarding or rebound tenderness) and abdomen soft Musculoskeletal: Extremities: extremities normal to inspection; no cyanosis and no clubbing Skin: no rashes, warm and dry Neurologic: moves all extremities and awake; no focal motor deficits Psychiatric: A+Ox3, euthymic affect Lymphatic: no lymphedema Results & Data Results & Data ([facility]) Vital Signs (Past 12 Hours) Vital Signs Temp Pulse Resp BP Pulse Ox 11/24/20 11:18 37.4 C 63 16 164/71 H 93 11/24/20 07:39 37.5 C 56 L 16 167/64 H 92 11/24/20 03:30 36.8 C 79 20 172/73 H 96 Laboratory Results 11/24/20 11/24/20 Range/Units 06:58 06:58 WBC 11.78 H (4.8-10.8) K/uL RBC 3.25 L (4.2-5.4) M/uL Hgb 9.5 L (12.0-16.0) g/dL Hct 28.4 L (37-47) % MCV 87.4 (80-100) fL MCH 29.2 (25-34) pg MCHC 33.5 (32-36) g/dL RDW Std Deviation 45.4 (36.4-46.3) fL RDW Coeff of Estefanía 14.2 (11.5-14.5) % Plt Count 222 (130-400) K/uL MPV 10.2 (7.4-10.4) fL Immature Gran % (Auto) 0.4 % Neut % (Auto) 79.4 % Lymph % (Auto) 9.4 % [place] % (Auto) 10.1 % Eos % (Auto) 0.6 % Baso % (Auto) 0.1 % Neut # (Auto) 9.35 H (1.4-6.5) K/uL Lymph # (Auto) 1.11 L (1.2-3.4) K/uL [place] # (Auto) 1.19 H (0.11-0.59) K/uL Eos # (Auto) 0.07 (0-0.5) K/uL Baso # (Auto) 0.01 (0-0.2) K/uL Immature Gran # (Auto) 0.05 H (0.00-0.02) K/uL Sodium 136 (136-145) mmol/L Potassium 3.3 L (3.5-5.1) mmol/L Chloride 101 (98-107) mmol/L Carbon Dioxide 28 (21-32) mmol/L Anion Gap 7.0 (3-11) BUN 6 L (7-18) mg/dl Creatinine 0.62 (0.6-1.2) mg/dl Est Cr Clr Drug Dosing 78.5 ml/min Est GFR ( Amer) 103.7 ml/min Est GFR (Non-Af Amer) 89.5 ml/min BUN/Creatinine Ratio 8.9 L (10-20) Glucose 97 (70-99) mg/dl Calcium 8.5 (8.5-10.1) mg/dl Total Bilirubin 1.1 H (0.2-1) mg/dl Direct Bilirubin 0.6 H (0-0.2) mg/dl AST 37 (15-37) U/L ALT 146 H (12-78) U/L Alkaline Phosphatase 146 H (45-117) U/L Total Protein 6.2 L (6.4-8.2) gm/dl Albumin 2.3 L (3.4-5.0) gm/dl Lipase 258 (73-393) U/L PG Care Time/CCT Total # of Minutes Spent Total Time Spent with Patient: Total time spent is greater than 50% in coordination of care (as documented) at patient's floor/unit and/or counseling patient: Coding Level of Care Code 89190 Subseq Hosp Care Lvl 3 Diagnoses Acute pancreatitis K85.90 Acute pancreatitis complication: unspecified Pancreatitis type: unspecified pancreatitis type Acute cholangitis K83.09 Elevated LFTs R79.89 Renal cyst N28.1 Hypertension I10 Hypothyroid E03.9 HLD (hyperlipidemia) E78.5 Nonsustained ventricular tachycardia I47.2 (1) Acute pancreatitis Acute pancreatitis complication: unspecified Pancreatitis type: unspecified pancreatitis type Qualified Code(s): K85.90 - Acute pancreatitis without necrosis or infection, unspecified
[2020-11-24] MEDS ORDERED: POLYETHYLENE (MIRALAX) 17 GM PACK PO ONE (13:00)
[2020-11-24] MEDS ORDERED: DOCUSATE SODIUM 100 MG CAP PO ONE (13:00)
[2020-11-24] MEDS: METOPROLOL SUCC 25MG EXT REL TAB PO SCH (20:07)
[2020-11-24] MEDS: PRAVASTATIN SOD 20 MG TAB PO SCH (20:08)
[2020-11-24] MEDS: FAMOTIDINE 40 MG TABLET PO SCH (20:08)
[2020-11-24] MEDS: DOCUSATE SODIUM 100 MG CAP PO SCH (20:09)
[2020-11-25] MEDS: PIPERACILLIN/TAZOBACTAM 3.375 GM in DEXTROSE 5% 100 ML IV SCH ×3 (00:45→17:47)
[2020-11-25] MEDS: LEVOTHYROXINE SODIUM 75 MCG TABLET PO SCH (05:22)
[2020-11-25 06:13] LABS: Basophils # (auto) 0.03 K/uL (0-0.2); Basophils % (auto) 0.2 %; Eosinophils # (auto) 0.08 K/uL (0-0.5); Eosinophils % (auto) 0.6 %; Hematocrit (blood only) 28.9 % (37-47); Hemoglobin 9.5 g/dL (12.0-16.0); Immature Granulocytes # (auto) 0.06 K/uL (0.00-0.02); Immature Granulocytes % (auto) 0.4 %; Lymphocytes # (auto) 1.65 K/uL (1.2-3.4); Lymphocytes % (auto) 12.1 %; Mean Corpuscular Hemoglobin 28.9 pg (25-34); Mean Corpuscular Hgb Conc 32.9 g/dL (32-36); Mean Corpuscular Volume 87.8 fL (80-100); Mean Platelet Volume 10.3 fL (7.4-10.4); Monocytes # (auto) 1.22 K/uL (0.11-0.59); Monocytes % (auto) 8.9 %; Neutrophils # (auto) 10.61 K/uL (1.4-6.5); Neutrophils % (auto) 77.8 %; Platelet Count 258 K/uL (130-400); RDW Coefficient of Variation 14.4 % (11.5-14.5); RDW Standard Deviation 46.1 fL (36.4-46.3); Red Blood Count 3.29 M/uL (4.2-5.4); White Blood Count 13.65 K/uL (4.8-10.8)
[2020-11-25 06:51] LABS: Albumin Level 2.4 gm/dl (3.4-5.0); BUN Creatinine Ratio 8.5 (10-20); Bilirubin Direct 0.5 mg/dl (0-0.2); Calcium 8.3 mg/dl (8.5-10.1); Creatinine Clr Calc Pharmacy 70.2 ml/min; Est GFR (African American) 100.1 ml/min; Est GFR (Non-African American) 86.4 ml/min; Potassium 3.6 mmol/L (3.5-5.1)
[2020-11-25 07:02] LABS: Bilirubin,Total 1.1 mg/dl (0.2-1); Thyroid Stimulating Hormone 4.1 uIu/ml (0.300-4.500); Total Protein 6.4 gm/dl (6.4-8.2)
[2020-11-25] MEDS: ENOXAPARIN INJ 40 MG/0.4 ML SYR SQ SCH (08:18)
[2020-11-25] MEDS: POLYETHYLENE (MIRALAX) 17 GM PACK PO SCH (08:18)
[2020-11-25] MEDS: MONTELUKAST SODIUM 10 MG TABLET PO SCH (08:19)
[2020-11-25] MEDS: lisinopril 2.5 MG TAB PO SCH (08:19)
[2020-11-25] MEDS: DOCUSATE SODIUM 100 MG CAP PO SCH ×2 (08:24→20:56)
--- NOTE | 2020-11-25 16:41 | Hospitalist Progress Note ---
Date of Service November 25, 2020 Assessment & Plan (1) Acute pancreatitis: Plan: - Due to biliary obstruction - she did have a previous cholecystectomy but was found to have an impacted stone in the CBD here removed with ERCP and had biliary stent placement - Lipase improved from 1100 to 324 and has no further pain except mild with palpation -continue low-fat diet With pancreatitis associated ileus-now resolved KUB without obstruction -dc docusate sodium and MiraLAX (2) Acute cholangitis: Plan: - S/P ERCP with stent placement and sphincterotomy on 21 November Improved over all but WBC count still elevated and back up to 13k today. Remains afebrile and clinically improving. - Continue Zosyn and convert to oral antibiotics upon discharge to complete 10 days WIll keep another day to ensure remains afebrile and leukocytosis improving prior to discharge - BCx - NGTD - GI following - avoid NSAIDs x 1 week; total Abx x 10 days; repeat ERCP in 6 weeks for stent removal LFTs stable today, may take some time to completely improve (3) Elevated LFTs: Plan: - Related to choledocholithiasis/cholangitis as above, stable from yesterday Follow LFTs in the morning (4) Renal cyst: Plan: -Plan for follow up renal US versus CT renal in approximately 6 months (5) Hypertension: Plan: Blood pressures are elevated - Continue metoprolol succinate 12.5 mg PO daily and Lisinopril 2.5 mg daily continue to monitor (6) Hypothyroid: Plan: - Continue levothyroxine 75 mcg PO daily TSH here normal to high normal at 4.1 follow as outpt (7) HLD (hyperlipidemia): Plan: - Continue pravastatin 20 mg daily (8) Nonsustained ventricular tachycardia: Plan: - Has had multiple episodes of short runs of VT earlier on but no further episodes - no chest pain or SOB With a chronic LBBB-question if these were just PVCs? None further and has no evidence of heart failure - EKG without acute ischemic changes but has a chronic LBBB has since been moved off telemetry Plan: - VTE prophylaxis - Lovenox 40mg SQ daily - Disposition -continued stay due to worsening leukocytosis, but discharge home tomorrow if doing well and WBC count improved Admission and Anticipated Discharge Date Admission Date: November 21, 2020 Anticipated date of discharge: 11/26/20 Subjective Pt feels well today, no abd pain, no nausea. Is eating low fat diet. Has moved her bowels 5 times since yesterday and does not want any more laxatives. She is ambulating the halls. Denies CP or SOB. Review of Systems Review of Systems: All systems reviewed & are unremarkable except as noted in HPI & below Physical Exam Constitutional: WD/WN, vitals as above Eyes: + anicteric sclerae Neck: trachea midline, no thyromegaly Respiratory: normal respiratory effort, lungs clear to auscultation Cardiovascular: RRR, no murmur, no edema Chest (Breasts): Chest: normal inspection of chest Gastrointestinal (Abdomen): Inspection/Auscultation: normal bowel sounds; abdomen not distended Percussion/Palpation: + abdomen tender (Mild in right upper quadrant without guarding or rebound tenderness) and abdomen soft Musculoskeletal: Extremities: extremities normal to inspection; no cyanosis and no clubbing Skin: no rashes, warm and dry Neurologic: moves all extremities and awake; no focal motor deficits Psychiatric: A+Ox3, euthymic affect Lymphatic: no lymphedema Results & Data Results & Data ([facility]) Vital Signs (Past 12 Hours) Vital Signs Temp Pulse Resp BP Pulse Ox 11/25/20 15:48 36.8 C 66 18 171/69 H 96 11/25/20 11:49 36.9 C 55 L 16 150/67 H 96 11/25/20 07:22 37.1 C 68 18 173/64 H 96 Laboratory Results 11/25/20 11/25/20 Range/Units 05:25 05:25 WBC 13.65 H (4.8-10.8) K/uL RBC 3.29 L (4.2-5.4) M/uL Hgb 9.5 L (12.0-16.0) g/dL Hct 28.9 L (37-47) % MCV 87.8 (80-100) fL MCH 28.9 (25-34) pg MCHC 32.9 (32-36) g/dL RDW Std Deviation 46.1 (36.4-46.3) fL RDW Coeff of Estefanía 14.4 (11.5-14.5) % Plt Count 258 (130-400) K/uL MPV 10.3 (7.4-10.4) fL Immature Gran % (Auto) 0.4 % Neut % (Auto) 77.8 % Lymph % (Auto) 12.1 % [place] % (Auto) 8.9 % Eos % (Auto) 0.6 % Baso % (Auto) 0.2 % Neut # (Auto) 10.61 H (1.4-6.5) K/uL Lymph # (Auto) 1.65 (1.2-3.4) K/uL [place] # (Auto) 1.22 H (0.11-0.59) K/uL Eos # (Auto) 0.08 (0-0.5) K/uL Baso # (Auto) 0.03 (0-0.2) K/uL Immature Gran # (Auto) 0.06 H (0.00-0.02) K/uL Sodium 134 L (136-145) mmol/L Potassium 3.6 (3.5-5.1) mmol/L Chloride 102 (98-107) mmol/L Carbon Dioxide 26 (21-32) mmol/L Anion Gap 6.0 (3-11) BUN 6 L (7-18) mg/dl Creatinine 0.69 (0.6-1.2) mg/dl Est Cr Clr Drug Dosing 70.2 ml/min Est GFR ( Amer) 100.1 ml/min Est GFR (Non-Af Amer) 86.4 ml/min BUN/Creatinine Ratio 8.5 L (10-20) Glucose 92 (70-99) mg/dl Calcium 8.3 L (8.5-10.1) mg/dl Total Bilirubin 1.1 H (0.2-1) mg/dl Direct Bilirubin 0.5 H (0-0.2) mg/dl AST 45 H (15-37) U/L ALT 127 H (12-78) U/L Alkaline Phosphatase 167 H (45-117) U/L Total Protein 6.4 (6.4-8.2) gm/dl Albumin 2.4 L (3.4-5.0) gm/dl TSH 4.100 (0.300-4.500) uIu/ml PG Care Time/CCT Total # of Minutes Spent Total Time Spent with Patient: Total time spent is greater than 50% in coordination of care (as documented) at patient's floor/unit and/or counseling patient: Coding Level of Care Code 96325 Subseq Hosp Care Lvl 2 Diagnoses Acute pancreatitis K85.90 Acute pancreatitis complication: unspecified Pancreatitis type: unspecified pancreatitis type Acute cholangitis K83.09 Elevated LFTs R79.89 Renal cyst N28.1 Hypertension I10 Hypothyroid E03.9 HLD (hyperlipidemia) E78.5 Nonsustained ventricular tachycardia I47.2 (1) Acute pancreatitis Acute pancreatitis complication: unspecified Pancreatitis type: unspecified pancreatitis type Qualified Code(s): K85.90 - Acute pancreatitis without necrosis or infection, unspecified
[2020-11-25] MEDS: METOPROLOL SUCC 25MG EXT REL TAB PO SCH (21:04)
[2020-11-25] MEDS: FAMOTIDINE 40 MG TABLET PO SCH ×2 (21:04→21:48)
[2020-11-25] MEDS: PRAVASTATIN SOD 20 MG TAB PO SCH (21:04)
[2020-11-26] MEDS: PIPERACILLIN/TAZOBACTAM 3.375 GM in DEXTROSE 5% 100 ML IV SCH ×2 (01:45→08:49)
[2020-11-26] MEDS: LEVOTHYROXINE SODIUM 75 MCG TABLET PO SCH (06:02)
[2020-11-26] MEDS: DOCUSATE SODIUM 100 MG CAP PO SCH (08:19)
[2020-11-26] MEDS: POLYETHYLENE (MIRALAX) 17 GM PACK PO SCH (08:19)
[2020-11-26] MEDS: MONTELUKAST SODIUM 10 MG TABLET PO SCH (08:49)
[2020-11-26] MEDS: lisinopril 2.5 MG TAB PO SCH (08:49)
[2020-11-26 08:57] LABS: Basophils # (auto) 0.04 K/uL (0-0.2); Basophils % (auto) 0.3 %; Eosinophils # (auto) 0.13 K/uL (0-0.5); Eosinophils % (auto) 0.9 %; Hematocrit (blood only) 31.7 % (37-47); Hemoglobin 10.5 g/dL (12.0-16.0); Immature Granulocytes # (auto) 0.18 K/uL (0.00-0.02); Immature Granulocytes % (auto) 1.3 %; Lymphocytes # (auto) 1.45 K/uL (1.2-3.4); Lymphocytes % (auto) 10.4 %; Mean Corpuscular Hemoglobin 29.6 pg (25-34); Mean Corpuscular Hgb Conc 33.1 g/dL (32-36); Mean Corpuscular Volume 89.3 fL (80-100); Mean Platelet Volume 10.3 fL (7.4-10.4); Monocytes # (auto) 1.11 K/uL (0.11-0.59); Neutrophils % (auto) 79.1 %; Nucleated RBC # (auto) 0.02 K/uL (0-0); Nucleated RBC % (auto) 0.1 %; Platelet Count 319 K/uL (130-400); RDW Coefficient of Variation 14.4 % (11.5-14.5); RDW Standard Deviation 47.3 fL (36.4-46.3); Red Blood Count 3.55 M/uL (4.2-5.4); White Blood Count 13.91 K/uL (4.8-10.8)
[2020-11-26 09:16] LABS: Albumin Level 2.6 gm/dl (3.4-5.0); BUN Creatinine Ratio 10.7 (10-20); Bilirubin Direct 0.3 mg/dl (0-0.2); Calcium 8.8 mg/dl (8.5-10.1); Est GFR (African American) 78.8 ml/min
[2020-11-26 09:18] LABS: Bilirubin,Total 0.8 mg/dl (0.2-1); Total Protein 7.1 gm/dl (6.4-8.2)
[2020-11-26] MEDS: ENOXAPARIN INJ 40 MG/0.4 ML SYR SQ SCH (11:26)
--- NOTE | 2020-11-26 11:50 | Discharge Summary ---
Date of Service November 26, 2020 Admission HPI Per Admitting Provider Milly Rutherford is a 75 year old female who presented to the ER with abdominal pain progressively getting worse over the last 5 days. Abdominal pain, epigastric, current severity 6-7/10, worse around 8/10, radiates round back. She was prescribed omeprazole and famotidine 3 days ago which have not helped her symptoms. Associated nausea, loss of appetite, fevers and chills. Tuesday had 5 bowel movements but none since then till this morning. In the ER WBC 25.01, lipase 1174, Total bilirubin 1.9, AST 204, ALT 624, ALP 221. CT A/P showed findings consistent with acute pancreatitis. She has had a prior cholecystectomy (20 years ago). She was referred to Medicine for admission and ongoing management of acute pancreatitis. Efrain Perry (significant other) - [phone]. Tried calling but no answer at time of admission. Principal Diagnosis Acute cholangitis, choledocholithiasis, acute pancreatitis Discharge Exam Constitutional WD/WN, vitals as above Eyes + anicteric sclerae Neck trachea midline, no thyromegaly Respiratory normal respiratory effort, lungs clear to auscultation Cardiovascular RRR, no murmur, no edema Chest (Breasts) Chest: normal inspection of chest Gastrointestinal (Abdomen) Inspection/Auscultation: normal bowel sounds; abdomen not distended Percussion/Palpation: abdomen soft; abdomen nontender Musculoskeletal Extremities: extremities normal to inspection; no cyanosis and no clubbing Skin no rashes, warm and dry Neurologic moves all extremities and awake; no focal motor deficits Psychiatric A+Ox3, euthymic affect Lymphatic no lymphedema Discharge Data Allergies Allergy/AdvReac Type Severity Reaction Status Date / Time itraconazole Allergy Unknown heart races Verified 11/21/20 11:17 metoclopramide Allergy Unknown Verified 11/21/20 11:17 Consultations 11/21/20 11:37 ED Decision to Admit Stat 11/21/20 12:04 Consult Gastroenterology Routine Procedures Performed Operation Date: 11/21/20 09:45 Actual Procedures p Endoscopic Retrograde Cholangiopancreatogram, Sphincterotomy, Stone Extraction (Not Applicable) - Thuan Lujan, Ordered Studies 11/21/20 FL ERCP biliary ductal Routine 11/21/20 10:09 CT abd pelvis IV con only Stat Endo Retro Cholangiopancreatogram 11/21/20 00:00 FL ERCP biliary ductal CLINICAL HISTORY: EXPLORE DUCTS COMPARISON STUDY: CT of the abdomen and pelvis performed earlier today. FLUOROSCOPY TIME: 23 seconds. FLUOROSCOPIC IMAGES: 9 FINDINGS: Fluoroscopy was provided during ERCP. These images demonstrate cholecystectomy clips. The common bile duct was cannulated. Balloon sweep through the common bile duct was performed. Biliary stent is in place. Intrahepatic bile ducts are partially opacified. IMPRESSION: Fluoroscopy provided during ERCP with placement of a biliary stent. ACT 112: Negative or not required by law. Electronically signed by: Jason Green M.D. 11/21/2020 4:54 PM Abdomen/Pelvis CT 11/21/20 10:[address] WITH IV CONTRAST CT DOSE: 290.91 mGy.cm HISTORY: diffuse ab pain, migratory from epigastric pain-> suprapubic TECHNIQUE: Multiaxial CT images of the abdomen and pelvis were performed following the use of intravenous contrast. A dose lowering technique was utilized adhering to the principles of ALARA. COMPARISON STUDY: None. FINDINGS: A few small bibasilar linear densities consistent with subsegmental atelectasis. No pneumoperitoneum. No pneumatosis. No suspicious lytic are blastic osseous lesions. Cholecystectomy. There are 2 hypodense lesions within the left hepatic lobe which measure up to 1 cm. These favor cysts. The main po rtal vein is patent. No retroperitoneal lymphadenopathy. Normal caliber abdominal aorta. The spleen and adrenal glands unremarkable. A 1.9 cm right renal cyst. No hydronephrosis. There are 2 hypodense lesions within the left kidney which do not clearly represent simple cysts. These measure up to 8 mm and is therefore too small to characterize. Statistically these represent small hyperdense cysts. Mild peripancreatic inflammatory change is noted. This is consistent with acute pancreatitis. No evidence for pancreatic necrosis or peripancreatic fluid collections at this time. There is trace ascites seen within the abdomen. The superior mesenteric vein and artery are patent. Questionable thickening of the proximal duodenum is likely reactive to the acute pancreatitis. Mild bladder wall thickening. This is likely due to underdistention. Hysterectomy. Colonic diverticulosis. No evidence for acute diverticulitis. No evidence for bowel obstruction. The appendix is partially obscured by the trace pelvic fluid but is likely within the range of normal limits. IMPRESSION: 1. Acute pancreatitis. 2. Cholecystectomy and hysterectomy. 3. No evidence for bowel obstruction. 4. Colonic diverticulosis. No evidence for acute diverticulitis. 5. Subcentimeter hypodensities within the left kidney. These are technically due to small to characterize. These do not appear to represent simple cysts. T herefore, statistically these represent hyperdense cysts. Consider follow-up renal ultrasound in 6 months to one year to ensure stability. ACT 112: Negative or not required by law. Electronically signed by: Carlos Johns M.D. 11/21/2020 11:02 AM KUB X-Ray 11/23/20 11:40 KUB CLINICAL HISTORY: Assess for ileus COMPARISON STUDY: CT of the abdomen and pelvis November 21, 2020. FINDINGS: Cholecystectomy clips and a common bile duct stent are noted. The bowel gas pattern is normal. There are no urinary calculi. IMPRESSION: Normal bowel gas pattern. No evidence for a bowel obstruction. ACT 112: Negative or not required by law. Electronically signed by: Jason Green M.D. 11/23/2020 12:59 PM Labs on day of discharge: 11/26/20 11/26/20 Range/Units 08:32 08:32 WBC 13.91 H (4.8-10.8) K/uL RBC 3.55 L (4.2-5.4) M/uL Hgb 10.5 L (12.0-16.0) g/dL Hct 31.7 L (37-47) % MCV 89.3 (80-100) fL MCH 29.6 (25-34) pg MCHC 33.1 (32-36) g/dL RDW Std Deviation 47.3 H (36.4-46.3) fL RDW Coeff of Estefanía 14.4 (11.5-14.5) % Plt Count 319 (130-400) K/uL MPV 10.3 (7.4-10.4) fL Immature Gran % (Auto) 1.3 % Neut % (Auto) 79.1 % Lymph % (Auto) 10.4 % [place] % (Auto) 8.0 % Eos % (Auto) 0.9 % Baso % (Auto) 0.3 % Neut # (Auto) 11.00 H (1.4-6.5) K/uL Lymph # (Auto) 1.45 (1.2-3.4) K/uL [place] # (Auto) 1.11 H (0.11-0.59) K/uL Eos # (Auto) 0.13 (0-0.5) K/uL Baso # (Auto) 0.04 (0-0.2) K/uL Immature Gran # (Auto) 0.18 H (0.00-0.02) K/uL Absolute Nucleated RBC 0.02 H (0-0) K/uL Nucleated RBC % (auto) 0.1 % Sodium 136 (136-145) mmol/L Potassium 4.0 (3.5-5.1) mmol/L Chloride 102 (98-107) mmol/L Carbon Dioxide 26 (21-32) mmol/L Anion Gap 8.0 (3-11) BUN 9 (7-18) mg/dl Creatinine 0.85 (0.6-1.2) mg/dl Est Cr Clr Drug Dosing 57.0 ml/min Est GFR ( Amer) 78.8 ml/min Est GFR (Non-Af Amer) 68.0 ml/min BUN/Creatinine Ratio 10.7 (10-20) Glucose 126 H (70-99) mg/dl Calcium 8.8 (8.5-10.1) mg/dl Total Bilirubin 0.8 (0.2-1) mg/dl Direct Bilirubin 0.3 H (0-0.2) mg/dl AST 42 H (15-37) U/L ALT 108 H (12-78) U/L Alkaline Phosphatase 170 H (45-117) U/L Total Protein 7.1 (6.4-8.2) gm/dl Albumin 2.6 L (3.4-5.0) gm/dl Hospital Course (1) Acute pancreatitis: - Due to biliary obstruction - she did have a previous cholecystectomy but was found to have an impacted stone in the CBD here removed with ERCP and had biliary stent placement - Lipase improved from 1100 to 324 and has no further pain -continue low-fat diet upon discharge With pancreatitis associated ileus-now resolved KUB without obstruction (2) Acute cholangitis: - S/P ERCP with stent placement and sphincterotomy on 21 November Improved over all but WBC count still elevated at 13k for 3 days in a row. Remains afebrile and clinically much improved, LFs continue to be trending downward - received IV Zosyn x 5 days and will convert to oral Augmentin 875mg po bid upon discharge to complete 10 days (5 more days) -repeat CBC as an outpt in 2 days to ensure leukocytosis resolving - BCx - NGTD - GI following - avoid NSAIDs x 1 week; total Abx x 10 days; repeat ERCP in 6 weeks for stent removal LFTs improving today, may take some time to completely improve-repeat as outpt in 2 days (3) Elevated LFTs: - Related to choledocholithiasis/cholangitis improving as above (4) Renal cyst: -Plan for follow up renal US versus CT renal in approximately 6 months (5) Hypertension: Blood pressures are elevated - Continue metoprolol succinate 12.5 mg PO daily and Lisinopril 2.5 mg daily (6) Hypothyroid: - Continue levothyroxine 75 mcg PO daily TSH here normal to high normal at 4.1 follow as outpt (7) HLD (hyperlipidemia): - Continue pravastatin 20 mg daily (8) Nonsustained ventricular tachycardia: - had multiple episodes of short runs of VT earlier in stay but no further episodes - no chest pain or SOB With a chronic LBBB-question if these were just PVCs? None further and has no evidence of heart failure - EKG without acute ischemic changes but has a chronic LBBB has since been moved off telemetry - VTE prophylaxis - Lovenox 40mg SQ daily - Disposition -dc to home, doing very well Total Time Total Time Spent Total Time Spent (In Minutes): 35 min Discharge Plan Discharge Items Patient Disposition: Home - Self-Care Reason For Visit: ACUTE CHOLANGITIS / PANCREATITIS Discharge Diagnosis: Acute cholangitis, choledocholithiasis, pancreatitis Condition on Discharge: Good Activity: As commented below Lifting: Gradually increase as tolerated Bathing: No limitations Exercise/Sports: Gradually increase as tolerated Non-emergency contact: Primary Care Provider and Account Services Manager Call non-emergency contact if: you have any medication questions, your symptoms worsen and your pain is not controlled Follow-up/Referrals: Adrienne Loyd DO [Primary Care Provider] - (Please follow up within 1-2 weeks.) Diet: Low Fat Ambulatory Orders: Complete Blood Count with Diff (Routine) Timeframe: 2 Days Location: Determined by Patient Ordered By: Cherri Hackett Comprehensive Metabolic Panel (Routine) Timeframe: 2 Days Location: Determined by Patient Ordered By: Cherri Hackett Addtl Attending Provider Instructions: Continue the antibiotic called Augmentin twice a day for 5 more days. You should have blood work drawn in 2 days at your PCP's office with results forwarded to them to review to make sure your white blood cell count is coming back down to normal and your liver tests continue to normalize. If you develop worsening abdominal pain, fevers/chills, nausea/vomiting, or any other concerns acutely, please return to the hospital. You will need to follow up with the GI doctor in 5-6 weeks for removal of your stent. If you don't hear from their office within the next week, please call their office to schedule this procedure. You were incidentally found ot have a cyst on your kidney--> your PCP should plan for follow up renal US versus CT renal in approximately 6 months Pending Studies at Discharge: No Stand-Alone Forms: [facility] Medications and DC Order Prescriptions: New amoxicillin-pot clavulanate [Augmentin] 875-125 mg tablet 1 tab PO BID Qty: 10 RF: 0 Continued ondansetron HCl [Zofran] 4 mg tablet 4 mg PO UD RF: 0 famotidine [Pepcid] 40 mg tablet 40 mg PO HS RF: 0 levothyroxine [Synthroid] 75 mcg tablet 75 mcg PO DAILYBB RF: 0 montelukast [Singulair] 10 mg tablet 10 mg PO QAM RF: 0 pravastatin 20 mg tablet 20 mg PO HS RF: 0 lisinopril [Zestril] 5 mg tablet 2.5 mg PO QAM RF: 0 metoprolol succinate [Toprol XL] 25 mg tablet extended release 24 hr 12.5 mg PO HS RF: 0 coenzyme Q10 [CoQ-10] 100 mg Capsule 100 mg PO HS RF: 0 Discharge Orders: Discharge Order (Routine); Ordered 11/26/20 Ordered By: Cherri Hackett Admission Data Admit Date/Time: 11/21/20 12:06 Attending Provider: Cherri Hackett Admit Provider: Dewey Santana Primary Care Provider: Adrienne Loyd Other Providers: Dewey Santana ; oJsse Bailon Coding Level of Care Code D/C DAY MANAGEMENT >30 MINS Diagnoses Acute pancreatitis K85.90 Acute pancreatitis complication: unspecified Pancreatitis type: unspecified pancreatitis type Acute cholangitis K83.09 Elevated LFTs R79.89 Renal cyst N28.1 Hypertension I10 Hypothyroid E03.9 HLD (hyperlipidemia) E78.5 Nonsustained ventricular tachycardia I47.2
== END 2020-11-26 12:40 | disposition home or self-care (01) | DRG 438 ==
LOC: ED 09:33 → 2W 12:06 → SUATTDRO 12:06 → 2W 14:09